=== PATIENT | male | born 1985 | race Caucasian/White ===

== ENCOUNTER → 2016-03-04 | Outpatient (REF) | payer OTHER ==
[~2016-03-04] MED LIST: ALPR2TAB3 PO; AMBI10TA PO; AMIT50TA PO; BACL10TA2 PO; CLAR10CA3 PO; CLOBETASOL TOP; COLA100C PO; CYCL10TA PO; DIAZ5TAB PO; DICY10SO PO; DULO30CA PO; FOLI1TAB2 PO; LISI-538 PO; LISI10TA4 PO; LYRI75CA PO; METH2.5TA PO; MINI1CAP PO; MORP15TA2 PO; OMEP40CA2 PO; OXYC15TA76 PO; OXYC1TAB23 PO; PAXI20TA3 PO; RANI150T PO; ROBA750T4 PO; SERO400T PO; SERO400T3 PO; SERO50TA PO; SOMA350T PO; TIZA4CAP3 PO; TOPA50TA7 PO; TRAZ100T4 PO; TRAZ150T14 PO; VALI2TAB PO; VALI5TAB PO; VARE1TA PO; VIST50CA PO; XANA0.5T PO
== END ==
LOC: M SFHCLERA 15:10
PROVIDERS: ATTEND Physician Assistant
DX: R41.840 Attention and concentration deficit (principal); Z53.9 Procedure and treatment not carried out, unspecified reason

== ENCOUNTER 2016-03-17 22:47 | Emergency (ER) | payer MEDICARE, MEDICAID ==
[2016-03-17] MEDS ORDERED: ALPRAZolam 0.25 MG TAB As Ordered ONE (23:28)
--- NOTE | 2016-03-18 00:11 | EDDOCDS ---
Physician Documentation [facility] Name: Jose Headley Age: 30 yrs Sex: Male : 1985 Arrival Date: 03/17/2016 Time: 22:47 Bed 30 Private MD: PIERCE MITCHELL R. Disposition: 03/17/16 23:57 Discharged to Home/Self Care. Impression: Anxiety disorder, unspecified. - Condition is Stable. - Discharge Instructions: Generalized Anxiety Disorder. - Medication Reconciliation, Local Pharmacy Hours form. - Follow up: PIERCE MITCHELL; When: 1 - 2 days; Reason: Recheck today's complaints. Follow up: [facility]; When: 4 - 5 days; Reason: Recheck today's complaints. - Problem is an ongoing problem. - Symptoms are unchanged. - Notes: You were seen in the ED for your anxiety. You were treated with anxiety medication and were seen by social work as well to make referrals for outpatient follow up. Please call [facility] and your primary doctor as well to arrange to be seen for ongoing care. Return to the ED for any worsening depression, thoughts of harming self or others or any other concerns. Historical: - Allergies: Ceftin (Rash, palpitation); - Home Meds: 1. lisinopril 20 mg Oral tab 1 tab once daily 2. loratadine 10 mg Oral tab 1 tab once daily 3. methocarbamol 750 mg Oral tab TID as needed 4. Minipress 1 mg Oral cap daily 5. omeprazole 40 mg Oral cpDR once daily 6. Seroquel 400 mg oral tab once daily 7. trazodone 100 mg Oral tab at HS for sleep 8. Xanax 0.5 mg Oral tab 1 tab 3 times per day - PMHx: Anxiety; Fibromyalgia; Hypertension; Panic Disorder; PTSD; soriatic arthritis; - PSHx: Colonoscopy; Endoscopy, Lower; - Social history: Smoking status: Patient uses tobacco products, heavy tobacco smoker. No barriers to communication noted, The patient speaks fluent German. - Family history: Not pertinent. - : The pt / caregiver states he / she is not on anticoagulants. Home medication list is obtained from the patient. - Exposure Risk Screening:: None identified. Vital Signs: 03/17 22:50 BP 121 / 87 RA Sitting (auto/lg); Pulse 88; Resp 18; Temp 97.7(O); Pulse Ox 100% on rs6 R/A; Weight 113.4 kg / 250 lbs (R); Height 5 ft. 9 in. (175.26 cm) (R); Pain 7/10; 03/18 00:09 BP 118 / 72; Pulse 78; Resp 18; Temp 98.0; Pulse Ox 99% ; Pain 0/10; tm5 03/17 22:50 Body Mass Index 36.92 (113.40 kg, 175.26 cm) rs6 MDM: 03/17 23:26 ALPRAZolam Tablet 1 mg PO once; prn anxiety ordered. br1 23:27 Consult PFS/PSA/Power Builder Developer: Resources/Social Work ordered. br1 23:49 Consult PFS/PSA/Power Builder Developer: Resources/Social Work complete. cl 23:52 Financial registration complete. [facility] Administered Medications: 23:32 Drug: ALPRAZolam 1 mg [alprazolam 0.25 mg tablet (4 tabs)] Route: PO; ld5 Signatures: Shelton Adkins, PSA PSA cl Alexey Gonzalez MD MD br1 Alecia Castillo RN RN rs3 Courtney White [facility] Sakshi Maldonado RN RN tm5 Jannie Carpio RN ld5 MTDD
--- NOTE | 2016-03-18 00:11 | EDDOCDS ---
Nurse's Notes [facility] Name: Jose Headley Age: 30 yrs Sex: Male : 1985 Arrival Date: 03/17/2016 Time: 22:47 Bed 30 Private MD: PIERCE MITCHELL R. Diagnosis: Anxiety disorder, unspecified Presentation: 03/17 22:52 Presenting complaint: Patient states: severe panic attack getting worse in the last few rs3 months. Saw primary care provider today. denies of suicidal/homicidal thoughts or plans. Mental Health Triage Level: Level 1- Pt displays no suicidal or homicidal ideations and does not appear to be a danger to self or others. Adult Sepsis Screening: The patient does not have new or worsening altered mentation. Patient's respiratory rate is less than 22. Systolic blood pressure is greater than 100. Patient has a qSOFA score of 0- Negative Sepsis Screen. Suicide/Homicide risk assessment- the patient denies having any suicidal and/or homicidal ideations and does not present with any other emotional, behavioral or mental health complaints. Status: Patient is not a food service or dependent. Transition of care: patient was not received from another setting of care. 22:52 Acuity: MICHAEL Level 4 rs3 22:52 Method Of Arrival: Walkin/Carried/Asstd rs3 Triage Assessment: 22:56 General: Appears in no apparent distress. Pain: Location: mouth. Pt Declines HIV rs3 testing. Historical: - Allergies: Ceftin (Rash, palpitation); - Home Meds: 1. lisinopril 20 mg Oral tab 1 tab once daily 2. loratadine 10 mg Oral tab 1 tab once daily 3. methocarbamol 750 mg Oral tab TID as needed 4. Minipress 1 mg Oral cap daily 5. omeprazole 40 mg Oral cpDR once daily 6. Seroquel 400 mg oral tab once daily 7. trazodone 100 mg Oral tab at HS for sleep 8. Xanax 0.5 mg Oral tab 1 tab 3 times per day - PMHx: Anxiety; Fibromyalgia; Hypertension; Panic Disorder; PTSD; soriatic arthritis; - PSHx: Colonoscopy; Endoscopy, Lower; - Social history: Smoking status: Patient uses tobacco products, heavy tobacco smoker. No barriers to communication noted, The patient speaks fluent Greek. - Family history: Not pertinent. - : The pt / caregiver states he / she is not on anticoagulants. Home medication list is obtained from the patient. - Exposure Risk Screening:: None identified. Screenin:17 Screening information is obtained from the patient. Fall risk: No risks identified. tm5 Assistance ADL's: requires no assistance with activities of daily living. Abuse/DV Screen: The patient / caregiver reports he/she is: not in a situation that causes fear, pain or injury. Nutritional screening: No deficits noted. Advance Directives: There is no active DNR order. home support is adequate. Assessment: 23:17 General: Appears in no apparent distress, Behavior is appropriate for age, cooperative. tm5 Pain: Denies pain. Neurological: Level of Consciousness is awake, alert, Oriented to person, place, time. Respiratory: Airway is patent Respiratory effort is even, unlabored, Respiratory pattern is regular, symmetrical. Derm: Skin is pink, warm & dry. normal. 23:32 General: Behavior is anxious, cooperative. General: Pt fidgeting in chair. Medicated ld5 per orders. Requesting to see provider. Pt would not be specific with this RN. Provider made aware. Will continue to monitor. Neurological: Level of Consciousness is awake, alert. Respiratory: Airway is patent Respiratory effort is even, unlabored. 03/18 00:09 Reassessment: Patient appears in no apparent distress at this time. Patient states tm5 feeling better. Patient states symptoms have improved. Social Work Consult: 00:04 Social Work Note: Pt has long hx of anxiety, presents to ED c/o worsening panic cl attacks/anxiety recently, denies SI/HI. Pt in no current outpt tx, had been going [facility] "until my insurance changed about a year ago", has been seeing his PCP for medications, takes Xanax for anxiety. Pt reports his PCP has referred hi to [facility] though pt realizes it may take some time to be seen, PSA offered additional referrals including [facility] walk-in tx, Dr. Gonzalez provided PRN Xanax as well. Pt denies any other needs/concerns, will f/u with his PCP in the morning, continues to deny any SI/HI and can CFS. Vital Signs: 03/17 22:50 BP 121 / 87 RA Sitting (auto/lg); Pulse 88; Resp 18; Temp 97.7(O); Pulse Ox 100% on rs6 R/A; Weight 113.4 kg (R); Height 5 ft. 9 in. (175.26 cm) (R); Pain 7/10; 03/18 00:09 BP 118 / 72; Pulse 78; Resp 18; Temp 98.0; Pulse Ox 99% ; Pain 0/10; tm5 03/17 22:50 Body Mass Index 36.92 (113.40 kg, 175.26 cm) rs6 Vitals: 03/17 22:50 Log In Time: March 17, 2016 at 22:45. RN notified that patient meets Red Flag rs6 criteria. ED Course: 22:49 Patient visited by Vanita Oneal PCA. rs6 22:49 PIERCE MITCHELL is Private Physician. rs6 22:49 Patient moved to Waiting rs6 22:54 Triage Initiated rs3 22:58 Patient moved to 30 rs3 23:06 Alexey Gonzalez MD is Attending Physician. br1 23:16 Patient visited by Sakshi Maldonado RN. tm5 23:16 ED physician to see patient. tm5 23:17 No IV's were initiated during this patient's visit. No procedures done that require tm5 assistance. 23:26 Patient visited by Alexey Gonzalez MD. br1 23:34 Patient visited by Jannie Carpio RN. ld5 23:42 Patient visited by Sakshi Maldonado RN. tm5 23:42 Psych services to see patient. tm5 23:43 Patient visited by Sakshi Maldonado RN. tm5 23:44 ED physician to see patient. tm5 23:56 PIERCE MITCHELL is Referral Physician. br1 23:56 [facility] is Referral Physician. br1 03/18 00:09 Patient visited by Sakshi Maldonado RN. tm5 00:09 The patient / caregiver is instructed regarding the plan of care and ED course. tm5 Administered Medications: 03/17 23:32 Drug: ALPRAZolam 1 mg [alprazolam 0.25 mg tablet (4 tabs)] Route: PO; ld5 Order Results: There are currently no results for this order. Outcome: 23:57 Discharge ordered by Provider. br1 03/18 00:09 Discharge Assessment: Patient awake, alert and oriented x 3. No cognitive and/or tm5 functional deficits noted. Patient verbalized understanding of disposition instructions. patient administered narcotics - no. The following High Risk Discharge criteria are identified: None. Discharged to home ambulatory. Condition: good Condition: stable Condition: improved. Discharge instructions given to patient, Instructed on discharge instructions, follow up and referral plans. Demonstrated understanding of instructions, Pt was receptive of discharge instructions/ teaching. No special radiology studies were completed. Property :Personal belongings accompany Pt. 00:10 Patient left the ED. tm5 Signatures: Shelton Adkins, PSA PSA cl Alexey Gonzalez MD MD br1 Alecia CastilloRN RN rs3 Jannie Carpio,RN RN ld5 Vanita Oneal PCA SLIDE DEVELOPER rs6 Sakshi Maldonado,RN RN tm5 MTDD
--- NOTE | 2016-03-20 01:11 | EDDOCDS ---
Physician Documentation [facility] Name: Jose Headley Age: 30 yrs Sex: Male : 1985 Arrival Date: 03/17/2016 Time: 22:47 Bed 30 Private MD: PIERCE MITCHELL R. Disposition: 03/17/16 23:57 Discharged to Home/Self Care. Impression: Anxiety disorder, unspecified. - Condition is Stable. - Discharge Instructions: Generalized Anxiety Disorder. - Medication Reconciliation, Local Pharmacy Hours form. - Follow up: PIERCE MITCHELL; When: 1 - 2 days; Reason: Recheck today's complaints. Follow up: [facility]; When: 4 - 5 days; Reason: Recheck today's complaints. - Problem is an ongoing problem. - Symptoms are unchanged. - Notes: You were seen in the ED for your anxiety. You were treated with anxiety medication and were seen by social work as well to make referrals for outpatient follow up. Please call [facility] and your primary doctor as well to arrange to be seen for ongoing care. Return to the ED for any worsening depression, thoughts of harming self or others or any other concerns. Historical: - Allergies: Ceftin (Rash, palpitation); - Home Meds: 1. lisinopril 20 mg Oral tab 1 tab once daily 2. loratadine 10 mg Oral tab 1 tab once daily 3. methocarbamol 750 mg Oral tab TID as needed 4. Minipress 1 mg Oral cap daily 5. omeprazole 40 mg Oral cpDR once daily 6. Seroquel 400 mg oral tab once daily 7. trazodone 100 mg Oral tab at HS for sleep 8. Xanax 0.5 mg Oral tab 1 tab 3 times per day - PMHx: Anxiety; Fibromyalgia; Hypertension; Panic Disorder; PTSD; soriatic arthritis; - PSHx: Colonoscopy; Endoscopy, Lower; - Social history: Smoking status: Patient uses tobacco products, heavy tobacco smoker. No barriers to communication noted, The patient speaks fluent Kazakh. - Family history: Not pertinent. - : The pt / caregiver states he / she is not on anticoagulants. Home medication list is obtained from the patient. - Exposure Risk Screening:: None identified. Vital Signs: 03/17 22:50 BP 121 / 87 RA Sitting (auto/lg); Pulse 88; Resp 18; Temp 97.7(O); Pulse Ox 100% on rs6 R/A; Weight 113.4 kg / 250 lbs (R); Height 5 ft. 9 in. (175.26 cm) (R); Pain 7/10; 03/18 00:09 BP 118 / 72; Pulse 78; Resp 18; Temp 98.0; Pulse Ox 99% ; Pain 0/10; tm5 03/17 22:50 Body Mass Index 36.92 (113.40 kg, 175.26 cm) rs6 MDM: 03/17 23:26 ALPRAZolam Tablet 1 mg PO once; prn anxiety ordered. br1 23:27 Consult PFS/PSA/Statistician Theoretical: Resources/Social Work ordered. br1 23:49 Consult PFS/PSA/Statistician Theoretical: Resources/Social Work complete. cl 23:52 Financial registration complete. [facility] 03/18 00:20 [facility] Payment Agreement was scanned into [employer] and attached to record. [facility] 12:23 T-Sheet-- Draft Copy was scanned into [employer] and attached to record. 12:23 Other: DRUG UTILIZATION REPORT was scanned into [employer] and attached to record. Administered Medications: 03/17 23:32 Drug: ALPRAZolam 1 mg [alprazolam 0.25 mg tablet (4 tabs)] Route: PO; ld5 Signatures: Shelton Adkins, PSA PSA cl Hilaria Vyas, Reg Reg gb Alexey Gonzalez MD MD br1 Alecia Castillo RN RN rs3 Courtney White [facility] Sakshi Maldonado RN RN tm5 Jannie Carpio RN ld5 The chart was reviewed and I authenticate all verbal orders and agree with the evaluation and treatment provided.Attachments: 03/18 00:20 [facility] Payment Agreement [facility] 12:23 T-Sheet-- Draft Copy Chart Complete MTDD
--- NOTE | 2016-03-20 01:11 | EDDOCDS ---
Nurse's Notes [facility] Name: Jose Headley Age: 30 yrs Sex: Male : 1985 Arrival Date: 03/17/2016 Time: 22:47 Bed 30 Private MD: PIERCE MITCHELL R. Diagnosis: Anxiety disorder, unspecified Presentation: 03/17 22:52 Presenting complaint: Patient states: severe panic attack getting worse in the last few rs3 months. Saw primary care provider today. denies of suicidal/homicidal thoughts or plans. Mental Health Triage Level: Level 1- Pt displays no suicidal or homicidal ideations and does not appear to be a danger to self or others. Adult Sepsis Screening: The patient does not have new or worsening altered mentation. Patient's respiratory rate is less than 22. Systolic blood pressure is greater than 100. Patient has a qSOFA score of 0- Negative Sepsis Screen. Suicide/Homicide risk assessment- the patient denies having any suicidal and/or homicidal ideations and does not present with any other emotional, behavioral or mental health complaints. Status: Patient is not a field services manager or dependent. Transition of care: patient was not received from another setting of care. 22:52 Acuity: MICHAEL Level 4 rs3 22:52 Method Of Arrival: Walkin/Carried/Asstd rs3 Triage Assessment: 22:56 General: Appears in no apparent distress. Pain: Location: mouth. Pt Declines HIV rs3 testing. Historical: - Allergies: Ceftin (Rash, palpitation); - Home Meds: 1. lisinopril 20 mg Oral tab 1 tab once daily 2. loratadine 10 mg Oral tab 1 tab once daily 3. methocarbamol 750 mg Oral tab TID as needed 4. Minipress 1 mg Oral cap daily 5. omeprazole 40 mg Oral cpDR once daily 6. Seroquel 400 mg oral tab once daily 7. trazodone 100 mg Oral tab at HS for sleep 8. Xanax 0.5 mg Oral tab 1 tab 3 times per day - PMHx: Anxiety; Fibromyalgia; Hypertension; Panic Disorder; PTSD; soriatic arthritis; - PSHx: Colonoscopy; Endoscopy, Lower; - Social history: Smoking status: Patient uses tobacco products, heavy tobacco smoker. No barriers to communication noted, The patient speaks fluent Korean. - Family history: Not pertinent. - : The pt / caregiver states he / she is not on anticoagulants. Home medication list is obtained from the patient. - Exposure Risk Screening:: None identified. Screenin:17 Screening information is obtained from the patient. Fall risk: No risks identified. tm5 Assistance ADL's: requires no assistance with activities of daily living. Abuse/DV Screen: The patient / caregiver reports he/she is: not in a situation that causes fear, pain or injury. Nutritional screening: No deficits noted. Advance Directives: There is no active DNR order. home support is adequate. Assessment: 23:17 General: Appears in no apparent distress, Behavior is appropriate for age, cooperative. tm5 Pain: Denies pain. Neurological: Level of Consciousness is awake, alert, Oriented to person, place, time. Respiratory: Airway is patent Respiratory effort is even, unlabored, Respiratory pattern is regular, symmetrical. Derm: Skin is pink, warm & dry. normal. 23:32 General: Behavior is anxious, cooperative. General: Pt fidgeting in chair. Medicated ld5 per orders. Requesting to see provider. Pt would not be specific with this RN. Provider made aware. Will continue to monitor. Neurological: Level of Consciousness is awake, alert. Respiratory: Airway is patent Respiratory effort is even, unlabored. 03/18 00:09 Reassessment: Patient appears in no apparent distress at this time. Patient states tm5 feeling better. Patient states symptoms have improved. Social Work Consult: 00:04 Social Work Note: Pt has long hx of anxiety, presents to ED c/o worsening panic cl attacks/anxiety recently, denies SI/HI. Pt in no current outpt tx, had been going to [facility] "until my insurance changed about a year ago", has been seeing his PCP for medications, takes Xanax for anxiety. Pt reports his PCP has referred hi to [facility] though pt realizes it may take some time to be seen, PSA offered additional referrals including [facility] walk-in tx, Dr. Gonzalez provided PRN Xanax as well. Pt denies any other needs/concerns, will f/u with his PCP in the morning, continues to deny any SI/HI and can CFS. Vital Signs: 03/17 22:50 BP 121 / 87 RA Sitting (auto/lg); Pulse 88; Resp 18; Temp 97.7(O); Pulse Ox 100% on rs6 R/A; Weight 113.4 kg (R); Height 5 ft. 9 in. (175.26 cm) (R); Pain 7/10; 03/18 00:09 BP 118 / 72; Pulse 78; Resp 18; Temp 98.0; Pulse Ox 99% ; Pain 0/10; tm5 03/17 22:50 Body Mass Index 36.92 (113.40 kg, 175.26 cm) rs6 Vitals: 03/17 22:50 Log In Time: March 17, 2016 at 22:45. RN notified that patient meets Red Flag rs6 criteria. ED Course: 22:49 Patient visited by Vanita Oneal PCA. rs6 22:49 PIERCE MITCHELL is Private Physician. rs6 22:49 Patient moved to Waiting rs6 22:54 Triage Initiated rs3 22:58 Patient moved to 30 rs3 23:06 Alexey Gonzalez MD is Attending Physician. br1 23:16 Patient visited by Sakshi Maldonado RN. tm5 23:16 ED physician to see patient. tm5 23:17 No IV's were initiated during this patient's visit. No procedures done that require tm5 assistance. 23:26 Patient visited by Alexey Gonzalez MD. br1 23:34 Patient visited by Jannie Carpio RN. ld5 23:42 Patient visited by Sakshi Maldonado RN. tm5 23:42 Psych services to see patient. tm5 23:43 Patient visited by Sakshi Maldonado RN. tm5 23:44 ED physician to see patient. tm5 23:56 PIERCE MITCHELL is Referral Physician. br1 23:56 [facility] is Referral Physician. br1 03/18 00:09 Patient visited by Sakshi Maldonado RN. tm5 00:09 The patient / caregiver is instructed regarding the plan of care and ED course. tm5 00:18 Patient name changed from Jose\\S\\Oscar\\S\\Kayode\\S\\ to Jose\\S\\J\\S\\Kayode. EDMS 00:20 [facility] Payment Agreement was scanned into [employer] and attached to record. [facility] 12:23 T-Sheet-- Draft Copy was scanned into [employer] and attached to record. gb 12:23 Other: DRUG UTILIZATION REPORT was scanned into [employer] and attached to record. gb Administered Medications: 03/17 23:32 Drug: ALPRAZolam 1 mg [alprazolam 0.25 mg tablet (4 tabs)] Route: PO; ld5 Order Results: There are currently no results for this order. Outcome: 23:57 Discharge ordered by Provider. br1 03/18 00:09 Discharge Assessment: Patient awake, alert and oriented x 3. No cognitive and/or tm5 functional deficits noted. Patient verbalized understanding of disposition instructions. patient administered narcotics - no. The following High Risk Discharge criteria are identified: None. Discharged to home ambulatory. Condition: good Condition: stable Condition: improved. Discharge instructions given to patient, Instructed on discharge instructions, follow up and referral plans. Demonstrated understanding of instructions, Pt was receptive of discharge instructions/ teaching. No special radiology studies were completed. Property :Personal belongings accompany Pt. 00:10 Patient left the ED. tm5 Signatures: Dispatcher [employer] EDMS Shelton Adkins, PSA PSA cl Hilaria Vyas, Reg Reg gb Alexey Gonzalez MD MD br1 Alecia Castillo,RN RN rs3 Jannie Carpio,RN RN ld5 Courtney White Rebecca, PCA PROFESSIONAL ADVISOR rs6 Sakshi Maldonado,RN RN tm5 Chart Complete MTDD
--- NOTE | 2016-03-20 01:11 | EDDOCDS ---
Physician Documentation [facility] Name: Jose Headley Age: 30 yrs Sex: Male : 1985 Arrival Date: 03/17/2016 Time: 22:47 Bed 30 Private MD: PIERCE IMTCHELL R. Disposition: 03/17/16 23:57 Discharged to Home/Self Care. Impression: Anxiety disorder, unspecified. - Condition is Stable. - Discharge Instructions: Generalized Anxiety Disorder. - Medication Reconciliation, Local Pharmacy Hours form. - Follow up: PIERCE MITCHELL; When: 1 - 2 days; Reason: Recheck today's complaints. Follow up: [facility]; When: 4 - 5 days; Reason: Recheck today's complaints. - Problem is an ongoing problem. - Symptoms are unchanged. - Notes: You were seen in the ED for your anxiety. You were treated with anxiety medication and were seen by social work as well to make referrals for outpatient follow up. Please call [facility] and your primary doctor as well to arrange to be seen for ongoing care. Return to the ED for any worsening depression, thoughts of harming self or others or any other concerns. Historical: - Allergies: Ceftin (Rash, palpitation); - Home Meds: 1. lisinopril 20 mg Oral tab 1 tab once daily 2. loratadine 10 mg Oral tab 1 tab once daily 3. methocarbamol 750 mg Oral tab TID as needed 4. Minipress 1 mg Oral cap daily 5. omeprazole 40 mg Oral cpDR once daily 6. Seroquel 400 mg oral tab once daily 7. trazodone 100 mg Oral tab at HS for sleep 8. Xanax 0.5 mg Oral tab 1 tab 3 times per day - PMHx: Anxiety; Fibromyalgia; Hypertension; Panic Disorder; PTSD; soriatic arthritis; - PSHx: Colonoscopy; Endoscopy, Lower; - Social history: Smoking status: Patient uses tobacco products, heavy tobacco smoker. No barriers to communication noted, The patient speaks fluent Frisian. - Family history: Not pertinent. - : The pt / caregiver states he / she is not on anticoagulants. Home medication list is obtained from the patient. - Exposure Risk Screening:: None identified. Vital Signs: 03/17 22:50 BP 121 / 87 RA Sitting (auto/lg); Pulse 88; Resp 18; Temp 97.7(O); Pulse Ox 100% on rs6 R/A; Weight 113.4 kg / 250 lbs (R); Height 5 ft. 9 in. (175.26 cm) (R); Pain 7/10; 03/18 00:09 BP 118 / 72; Pulse 78; Resp 18; Temp 98.0; Pulse Ox 99% ; Pain 0/10; tm5 03/17 22:50 Body Mass Index 36.92 (113.40 kg, 175.26 cm) rs6 MDM: 03/17 23:26 ALPRAZolam Tablet 1 mg PO once; prn anxiety ordered. br1 23:27 Consult PFS/PSA/Locker Room Clerk: Resources/Social Work ordered. br1 23:49 Consult PFS/PSA/Locker Room Clerk: Resources/Social Work complete. cl 23:52 Financial registration complete. [facility] 03/18 00:20 [facility] Payment Agreement was scanned into [employer] and attached to record. [facility] 12:23 T-Sheet-- Draft Copy was scanned into [employer] and attached to record. 12:23 Other: DRUG UTILIZATION REPORT was scanned into [employer] and attached to record. Administered Medications: 03/17 23:32 Drug: ALPRAZolam 1 mg [alprazolam 0.25 mg tablet (4 tabs)] Route: PO; ld5 Signatures: Shelton Adkins, PSA PSA cl Hilaria Vyas, Reg Reg gb Alexey Gonzalez MD MD br1 Alecia Castillo RN RN rs3 Courtney White [facility] Sakshi Maldonado RN RN tm5 Jannie Carpio RN ld5 The chart was reviewed and I authenticate all verbal orders and agree with the evaluation and treatment provided.Attachments: 03/18 00:20 [facility] Payment Agreement [facility] 12:23 T-Sheet-- Draft Copy Chart Complete MTDD
== END 2016-03-18 00:10 | disposition home or self-care (01) ==
LOC: M ED 22:47
DX: F41.9 Anxiety disorder, unspecified (principal); I10 Essential (primary) hypertension; F43.10 Post-traumatic stress disorder, unspecified; L40.50 Arthropathic psoriasis, unspecified; Z79.899 Other long term (current) drug therapy; Z88.1 Allergy status to other antibiotic agents; F17.210 Nicotine dependence, cigarettes, uncomplicated

== ENCOUNTER 2016-04-23 22:03 | Emergency (ER) | payer MEDICARE, MEDICAID ==
[~2016-04-23] VITALS: Ht 175.3 cm; Wt 111.1 kg
[2016-04-23] MEDS ORDERED: BUSP1TAB PO (22:20)
[2016-04-23] MEDS ORDERED: NORCO 5/325MG TABLET (BULK) PO ONE (23:45)
[2016-04-23] MEDS ORDERED: CLEO300C2 PO (23:45)
[2016-04-23] MEDS ORDERED: CLINDAMYCIN 150 MG CAP PO ONE (23:45)
[2016-04-23] MEDS ORDERED: NORC5TAB PO (23:45)
[2016-04-23 23:59] VITALS: BP 166/100
== END 2016-04-24 | disposition home or self-care (01) ==
LOC: M ED 23:42
DX: K02.9 Dental caries, unspecified (principal); K05.00 Acute gingivitis, plaque induced; K21.9 Gastro-esophageal reflux disease without esophagitis; F41.9 Anxiety disorder, unspecified; Z79.899 Other long term (current) drug therapy; Z88.1 Allergy status to other antibiotic agents; Z88.8 Allergy status to other drugs, medicaments and biological substances; F17.210 Nicotine dependence, cigarettes, uncomplicated

== ENCOUNTER 2016-04-25 14:03 | Emergency (ER) | payer MEDICARE, MEDICAID ==
[~2016-04-25] VITALS: Ht 175.3 cm; Wt 111.1 kg
[~2016-04-25 14:03] MED LIST changes: +BUSP1TAB PO; +CLEO300C2 PO; +NORC5TAB PO
[2016-04-25 14:10] VITALS: BP 152/93
--- NOTE | 2016-04-25 18:22 | ECGEPIP ---
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 HEART RATE IS NOW SLOWER OTHERWISE NO SIGNIFICANT CHANGES Electronically Signed On 04-25-2016 18:22:40 EDT by Raudel Hernandez
[2016-04-26] MEDS ORDERED: TYLE500T78 PO (22:09)
[2016-04-26] MEDS ORDERED: IBUP600T26 PO (22:09)
== END 2016-04-25 16:49 | disposition left against medical advice (07) ==
LOC: M ED 16:39
DX: R07.9 Chest pain, unspecified (principal); Z53.20 Procedure and treatment not carried out because of patient's decision for unspecified reasons

== ENCOUNTER 2016-04-26 21:40 | Emergency (ER) | payer MEDICARE, MEDICAID ==
[~2016-04-26] VITALS: Ht 175.3 cm; Wt 108.9 kg
[2016-04-26] MEDS ORDERED: TYLE500T78 PO (22:09)
[2016-04-26] MEDS ORDERED: IBUP600T26 PO (22:09)
[2016-04-26] MEDS ORDERED: MORPHINE 4 MG/ML 1ML SYRINGE IV ONE (22:45)
[2016-04-26] MEDS ORDERED: ONDANSETRON 4MG/2ML VIAL (J2405) IV ONE (22:45)
[2016-04-26 23:03] LABS: BASO % 0.2 % (0.0-1.0); EOS # 0.2 K/mm3 (0.0-0.50); EOS % 2.7 % (0.0-3.0); LARGE UNSTAINED CELL # 0.1 K/mm3 (0.0-0.4); LARGE UNSTAINED CELL % 1.4 % (0.0-4.0); LYMPH # 2.2 K/mm3 (1.5-4.5); LYMPH % 27.7 % (24.0-44.0); MEAN CORPUSCULAR HEMOGLOBIN 28.7 pg (27.0-33.0); MEAN CORPUSCULAR HGB CONC 33.1 g/dl (32.0-36.5); MEAN CORPUSCULAR VOLUME 86.8 fl (80.0-96.0); MONO # 0.4 K/mm3 (0.0-0.8); MONO % 5.7 % (0.0-5.0); NEUTROPHILS # 4.7 K/mm3 (1.8-7.7); NEUTROPHILS % 62.2 % (36.0-66.0); PLATELET COUNT, AUTOMATED 241 k/mm3 (150-450); RED CELL DISTRIBUTION WIDTH 12.9 % (11.5-14.5); WHITE BLOOD COUNT 7.6 K/mm3 (4.0-10.0)
[2016-04-26 23:27] LABS: ANION GAP 8 MEQ/L (8-16); BLOOD UREA NITROGEN 8 MG/DL (7-18); CALCIUM LEVEL 8.6 MG/DL (8.5-10.1); CARBON DIOXIDE LEVEL 27 MEQ/L (21-32); CHLORIDE LEVEL 110 MEQ/L (98-107); CREATININE FOR GFR 0.88 MG/DL (0.70-1.30); GLOMERULAR FILTRATION RATE > 60.0 (>60); GLUCOSE, FASTING 83 MG/DL (70-105); POTASSIUM SERUM 3.7 MEQ/L (3.5-5.1); SODIUM LEVEL 145 MEQ/L (136-145)
[2016-04-26] MEDS ORDERED: ISOVUE-370 76% 100ML VIAL (Q9967) As Ordered ONE (23:30)
--- NOTE | 2016-04-27 00:30 | REPUSA ---
CLINICAL HISTORY: Rob angina. TECHNIQUE: Multiple axial CT images were obtained through the neck with IV contrast material. MPR cor onal and sagittal sequences were obtained. COMMENTS: Diffuse edema and swelling of the oropharyngeal soft tissues. No critical airway narrowing. No drainable fluid collection. The piriform sinuses are normal. There is no supra or infraglottic laryngeal mass. The proximal trach ea is normal. There is no paravertebral soft tissue mass. The salivary glands are normal. There is no deep cervical or jugular lymphadenopathy. The paravertebral soft tissue space is normal. Limited images through the posterior fossa demonstrate no evidence for tonsilar herniation. Evaluation of the visualized lung apices reveals no evidence for abnormality. IMPRESSION: Diffuse edema and swelling of the oropharyngeal soft tissues. Probably infectious/inflammatory pathol ogy. Mildly enlarged palatine tonsils. No critical airway narrowing. No drainable abscess formation. Thank you for your kind referral of this patient.
[2016-04-27 00:34] VITALS: BP 135/71
[2016-04-27] MEDS ORDERED: NORCO 5/325MG TABLET (BULK) PO ONE (00:45)
--- NOTE | 2016-04-27 08:26 | ECGEPIP ---
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
== END 2016-04-27 00:54 | disposition home or self-care (01) ==
LOC: M ED 22:48
DX: K02.9 Dental caries, unspecified (principal); K13.79 Other lesions of oral mucosa; I10 Essential (primary) hypertension; F31.9 Bipolar disorder, unspecified; M51.9 Unspecified thoracic, thoracolumbar and lumbosacral intervertebral disc disorder; L40.9 Psoriasis, unspecified; F17.200 Nicotine dependence, unspecified, uncomplicated; Z79.899 Other long term (current) drug therapy; Z88.1 Allergy status to other antibiotic agents; Z88.8 Allergy status to other drugs, medicaments and biological substances
CPT/HCPCS: 70491; 80048; 85025; 86140; 93005; 96374; 96375; 99283; J2405; Q9967

== ENCOUNTER → 2016-09-01 | Outpatient (REF) | payer MEDICARE, MEDICAID ==
[~2016-09-01] MED LIST changes: -COLA100C PO; +COLA100C5 PO; -FOLI1TAB2 PO; +FOLI1TAB4 PO; +IBUP-1022 PO; +NORC1TAB4 PO; -NORC5TAB PO; +PAXI20TA29 PO; -PAXI20TA3 PO; -TOPA50TA7 PO; +TOPA50TA8 PO; +TRAZ-136 PO; -TRAZ100T4 PO; -TRAZ150T14 PO; +TRAZ1TAB14 PO; +TYLE500T78 PO
[2016-09-01 11:35] LABS: MEAN CORPUSCULAR HGB CONC 34.6 g/dl (32.0-36.5); MEAN CORPUSCULAR VOLUME 86.8 fl (80.0-96.0); RED CELL DISTRIBUTION WIDTH 12.8 % (11.5-14.5); WHITE BLOOD COUNT 8.3 K/mm3 (4.0-10.0)
[2016-09-01 14:56] LABS: ALBUMIN 3.8 GM/DL (3.2-5.2); ALBUMIN/GLOBULIN RATIO 1.06 (1.00-1.93); ALKALINE PHOSPHATASE 108 U/L (45-117); ALT/SGPT 39 U/L (12-78); ANION GAP 6 MEQ/L (8-16); AST/SGOT 21 U/L (15-37); BILIRUBIN,TOTAL 0.2 MG/DL (0.2-1.0); BLOOD UREA NITROGEN 11 MG/DL (7-18); CALCIUM LEVEL 8.9 MG/DL (8.5-10.1); CARBON DIOXIDE LEVEL 26 MEQ/L (21-32); CHLORIDE LEVEL 111 MEQ/L (98-107); CHOLESTEROL LEVEL 161 MG/DL (<200); CREATININE FOR GFR 0.82 MG/DL (0.70-1.30); GLOMERULAR FILTRATION RATE > 60.0 (>60); GLUCOSE, FASTING 105 MG/DL (70-105); POTASSIUM SERUM 4.1 MEQ/L (3.5-5.1); SODIUM LEVEL 143 MEQ/L (136-145); TOTAL PROTEIN 7.4 GM/DL (6.4-8.2); TRIGLYCERIDES LEVEL 355 MG/DL (<150)
== END ==
LOC: M SFHCLERA 08:23
PROVIDERS: ATTEND Physician Assistant
DX: I10 Essential (primary) hypertension (principal); E78.2 Mixed hyperlipidemia; N40.1 Benign prostatic hyperplasia with lower urinary tract symptoms; E03.9 Hypothyroidism, unspecified; F17.200 Nicotine dependence, unspecified, uncomplicated; M51.26 Other intervertebral disc displacement, lumbar region; F31.32 Bipolar disorder, current episode depressed, moderate
CPT/HCPCS: 80053; 80061; 84443; 85027; G0103; G0463

== ENCOUNTER → 2017-03-21 | Outpatient (REF) | payer MEDICARE, MEDICAID ==
[2017-03-21 13:22] LABS: ALBUMIN 4.2 GM/DL (3.2-5.2); ALBUMIN/GLOBULIN RATIO 1.24 (1.00-1.93); ALKALINE PHOSPHATASE 81 U/L (45-117); ALT/SGPT 37 U/L (12-78); ANION GAP 4 MEQ/L (8-16); AST/SGOT 21 U/L (7-37); BILIRUBIN,TOTAL 0.3 MG/DL (0.2-1.0); BLOOD UREA NITROGEN 13 MG/DL (7-18); CALCIUM LEVEL 9.1 MG/DL (8.5-10.1); CARBON DIOXIDE LEVEL 29 MEQ/L (21-32); CHLORIDE LEVEL 108 MEQ/L (98-107); CHOLESTEROL LEVEL 146 MG/DL (<200); CHOLESTEROL RISK RATIO 4.709 (<5); CREATININE FOR GFR 0.77 MG/DL (0.70-1.30); GLOMERULAR FILTRATION RATE > 60.0 (>60); GLUCOSE, FASTING 96 MG/DL (70-100); HDL CHOLESTEROL 31 MG/DL (>40); NON-HDL-C 115 MG/DL; POTASSIUM SERUM 4.7 MEQ/L (3.5-5.1); SODIUM LEVEL 141 MEQ/L (136-145); TOTAL PROTEIN 7.6 GM/DL (6.4-8.2); TRIGLYCERIDES LEVEL 90 MG/DL (<150)
[2017-03-28 08:24] LABS: SUMMARY SEE SEPARATE REPORT
== END ==
LOC: M SFHCLERA 08:55
DX: E78.2 Mixed hyperlipidemia (principal); E03.9 Hypothyroidism, unspecified; F13.21 Sedative, hypnotic or anxiolytic dependence, in remission; Z79.899 Other long term (current) drug therapy
CPT/HCPCS: 84443

== ENCOUNTER → 2017-03-27 | Outpatient (REF) | payer MEDICARE, MEDICAID ==
[2017-03-27 20:50] LABS: BASO % 0.4 % (0.0-1.0); EOS # 0.3 10^3/uL (0.0-0.50); EOS % 3.7 % (0.0-3.0); HEMATOCRIT 44.7 % (42.0-52.0); IMMATURE GRANULOCYTE % 0.5 % (0-3.0); LYMPH # 2.6 10^3/uL (1.5-4.5); LYMPH % 32.9 % (24.0-44.0); MEAN CORPUSCULAR HEMOGLOBIN 29.2 pg (27.0-33.0); MEAN CORPUSCULAR HGB CONC 33.6 g/dl (32.0-36.5); MONO # 0.6 10^3/uL (0.0-0.8); MONO % 7.6 % (0.0-5.0); NEUTROPHILS # 4.4 10^3/uL (1.8-7.7); NEUTROPHILS % 54.9 % (36.0-66.0); PLATELET COUNT, AUTOMATED 311 10^3/uL (150-450); RED BLOOD COUNT 5.14 10^6/uL (4.30-6.10); RED CELL DISTRIBUTION WIDTH 13.6 % (11.5-14.5)
[2017-03-27 21:09] LABS: ALBUMIN 4.4 GM/DL (3.2-5.2); ALBUMIN/GLOBULIN RATIO 1.19 (1.00-1.93); ALKALINE PHOSPHATASE 87 U/L (45-117); ALT/SGPT 38 U/L (12-78); ANION GAP 7 MEQ/L (8-16); AST/SGOT 22 U/L (7-37); BILIRUBIN,TOTAL 0.3 MG/DL (0.2-1.0); BLOOD UREA NITROGEN 13 MG/DL (7-18); CALCIUM LEVEL 9.3 MG/DL (8.5-10.1); CARBON DIOXIDE LEVEL 28 MEQ/L (21-32); CHLORIDE LEVEL 107 MEQ/L (98-107); CREATININE FOR GFR 0.79 MG/DL (0.70-1.30); GLOMERULAR FILTRATION RATE > 60.0 (>60); GLUCOSE, FASTING 83 MG/DL (70-100); POTASSIUM SERUM 4.3 MEQ/L (3.5-5.1); SODIUM LEVEL 142 MEQ/L (136-145); TOTAL PROTEIN 8.1 GM/DL (6.4-8.2)
[2017-03-29 10:55] LABS: HEPATITIS B SURFACE ANTIGEN NEGATIVE (NEGATIVE)
[2017-03-29 11:00] LABS: HEPATITIS B CORE ANTIBODY IGM NEGATIVE (NEGATIVE)
[2017-03-29 11:01] LABS: HIV 1&2 SCREEN CENTAUR NEGATIVE (NEGATIVE)
[2017-03-29 11:02] LABS: HEPATITIS A ANTIBODY IGM NEGATIVE (NEGATIVE)
[2017-03-30 00:07] LABS: QUANTIFERON GOLD TB Negative (Negative); TB Test (QFT) Antigen 0.01 IU/mL (.); TB Test (QFT) Mitogen 8.65 IU/mL (.); TB Test (QFT) Nil 0.01 IU/mL (.)
== END ==
LOC: M SFHCLERA 17:53
DX: L40.0 Psoriasis vulgaris (principal); L40.50 Arthropathic psoriasis, unspecified
CPT/HCPCS: 80053

== ENCOUNTER → 2018-03-02 | Outpatient (REF) | payer MEDICARE, MEDICAID ==
[~2018-03-02] MED LIST changes: +FOLI1TAB11 PO; -FOLI1TAB4 PO; +METH2.5T48 PO; -METH2.5TA PO; +TIZA4CAP PO; -TIZA4CAP3 PO; -TRAZ-136 PO; +TRAZ-163 PO
[2018-03-02 17:05] LABS: HEMATOCRIT 46.4 % (42.0-52.0); HEMOGLOBIN 15.5 g/dl (13.5-17.5); MEAN CORPUSCULAR HEMOGLOBIN 29.9 pg (27.0-33.0); MEAN CORPUSCULAR HGB CONC 33.4 g/dl (32.0-36.5); MEAN CORPUSCULAR VOLUME 89.4 fl (80.0-96.0); PLATELET COUNT, AUTOMATED 288 10^3/uL (150-450); RED BLOOD COUNT 5.19 10^6/uL (4.30-6.10); WHITE BLOOD COUNT 8.1 10^3/uL (4.0-10.0)
[2018-03-02 17:11] LABS: ALBUMIN 3.9 GM/DL (3.2-5.2); ALT/SGPT 36 U/L (12-78); BILIRUBIN,TOTAL 0.3 MG/DL (0.2-1.0); BLOOD UREA NITROGEN 18 MG/DL (7-18); CALCIUM LEVEL 8.9 MG/DL (8.5-10.1); CARBON DIOXIDE LEVEL 25 MEQ/L (21-32); CHLORIDE LEVEL 103 MEQ/L (98-107); CHOLESTEROL LEVEL 211 MG/DL (<200); CHOLESTEROL RISK RATIO 5.552 (<5); CREATININE FOR GFR 0.78 MG/DL (0.70-1.30); FREE T4 0.97 NG/DL (0.76-1.46); GLOMERULAR FILTRATION RATE > 60.0 (>60); GLUCOSE, FASTING 97 MG/DL (70-100); HDL CHOLESTEROL 38 MG/DL (>40); LDL CHOLESTEROL 132 MG/DL (<100); NON-HDL-C 173 MG/DL; POTASSIUM SERUM 3.8 MEQ/L (3.5-5.1); SODIUM LEVEL 139 MEQ/L (136-145); TOTAL PROTEIN 7.7 GM/DL (6.4-8.2); TRIGLYCERIDES LEVEL 206 MG/DL (<150)
== END ==
LOC: M SFHCLERA 13:43
PROVIDERS: ATTEND Nurse Practitioner Family
DX: I10 Essential (primary) hypertension (principal); E78.2 Mixed hyperlipidemia; E03.9 Hypothyroidism, unspecified; F13.21 Sedative, hypnotic or anxiolytic dependence, in remission

== ENCOUNTER → 2018-03-17 | Outpatient (REF) | payer MEDICARE, MEDICAID | LOC: M LAB REF 12:21 | PROVIDERS: ATTEND Physician Assistant | DX: J02.9 Acute pharyngitis, unspecified (principal) ==

== ENCOUNTER → 2018-05-24 | Outpatient (REF) | payer MEDICARE, MEDICAID ==
[~2018-05-24] MED LIST changes: -DULO30CA PO; +DULO30CA9 PO; -NORC1TAB4 PO; +NORC1TAB7 PO; -SERO400T3 PO; +SERO400T4 PO
[2018-05-24 16:41] LABS: BASO # 0.1 10^3/uL (0.0-0.2); BASO % 0.7 % (0.0-1.0); EOS # 0.2 10^3/uL (0.0-0.50); EOS % 2.3 % (0.0-3.0); HEMATOCRIT 47.8 % (42.0-52.0); HEMOGLOBIN 15.3 g/dl (13.5-17.5); LYMPH # 2.1 10^3/uL (1.5-4.5); LYMPH % 29.2 % (24.0-44.0); MEAN CORPUSCULAR HEMOGLOBIN 29.4 pg (27.0-33.0); MEAN CORPUSCULAR VOLUME 91.7 fl (80.0-96.0); MONO # 0.6 10^3/uL (0.0-0.8); MONO % 7.9 % (0.0-5.0); NEUTROPHILS # 4.3 10^3/uL (1.8-7.7); NEUTROPHILS % 59.1 % (36.0-66.0); PLATELET COUNT, AUTOMATED 254 10^3/uL (150-450); RED BLOOD COUNT 5.21 10^6/uL (4.30-6.10); WHITE BLOOD COUNT 7.3 10^3/uL (4.0-10.0)
[2018-05-24 16:47] LABS: ALBUMIN 4.1 GM/DL (3.2-5.2); ALT/SGPT 32 U/L (12-78); BILIRUBIN,TOTAL 0.4 MG/DL (0.2-1.0); BLOOD UREA NITROGEN 14 MG/DL (7-18); CARBON DIOXIDE LEVEL 29 MEQ/L (21-32); CHLORIDE LEVEL 107 MEQ/L (98-107); CREATININE FOR GFR 0.86 MG/DL (0.70-1.30); GLOMERULAR FILTRATION RATE > 60.0 (>60); GLUCOSE, FASTING 85 MG/DL (70-100); POTASSIUM SERUM 4.1 MEQ/L (3.5-5.1); SODIUM LEVEL 141 MEQ/L (136-145); TOTAL PROTEIN 7.6 GM/DL (6.4-8.2)
[2018-05-25 06:04] LABS: HEPATITIS B SURFACE ANTIGEN NEGATIVE (NEGATIVE)
[2018-05-25 06:30] LABS: HEPATITIS C VIRUS ABY INDEX 0.1 INDEX (<0.8)
[2018-05-25 06:31] LABS: HEPATITIS B CORE ANTIBODY IGM NEGATIVE (NEGATIVE)
[2018-05-25 06:33] LABS: HEPATITIS A ANTIBODY IGM NEGATIVE (NEGATIVE)
== END ==
LOC: M SFHCLERA 13:57
PROVIDERS: ATTEND Dermatology
DX: Z51.81 Encounter for therapeutic drug level monitoring (principal)

== ENCOUNTER → 2018-11-06 | Outpatient (REF) | payer MEDICARE, MEDICAID ==
[~2018-11-06] MED LIST changes: -OMEP40CA2 PO; +OMEP40CA97 PO; -TRAZ-163 PO; +TRAZ-257 PO
== END ==
LOC: M SFHCLERA 15:27
PROVIDERS: ATTEND Nurse Practitioner Family
DX: J02.9 Acute pharyngitis, unspecified (principal)

== ENCOUNTER → 2019-04-18 | Outpatient (CLI) | payer MEDICAID, MEDICARE | LOC: M LAB 15:49 | PROVIDERS: ATTEND Dermatology | DX: Z79.899 Other long term (current) drug therapy (principal) ==

== ENCOUNTER → 2019-11-22 | Outpatient (CLI) | payer SELFPAY ==
[~2019-11-22] MED LIST changes: +CYCL-707 PO; -CYCL10TA PO; +OXYC-1 PO; -OXYC15TA76 PO
== END ==
LOC: M LABSMTC 11:18
PROVIDERS: ATTEND Pediatrics
DX: Z20.828 Contact with and (suspected) exposure to other viral communicable diseases (principal)

== ENCOUNTER → 2020-02-24 | Outpatient (CLI) | payer MEDICARE ==
[2020-02-24 19:00] LABS: FREE T4 0.86 NG/DL (0.76-1.46); THYROID STIMULATING HORMONE 1.51 uIU/ML (0.358-3.740)
== END ==
LOC: M LAB 18:00
PROVIDERS: ATTEND Nurse Practitioner Family
DX: E03.9 Hypothyroidism, unspecified (principal); R39.11 Hesitancy of micturition
CPT/HCPCS: 36415; 84439; 84443; G0103

== ENCOUNTER → 2020-04-01 | Outpatient (CLI) | payer MEDICARE ==
[~2020-04-01] MED LIST changes: -LISI-538 PO; +LISI10TA22 PO; -LISI10TA4 PO; +LISI20TA33 PO
== END ==
LOC: M OUTALCOH 08:28
PROVIDERS: ATTEND Psychiatry & Neurology Psychiatry
DX: Z02.89 Encounter for other administrative examinations (principal)

== ENCOUNTER → 2020-04-06 | Outpatient (CLI) | payer MEDICARE | LOC: M OUTALCOH 08:32 | PROVIDERS: ATTEND Psychiatry & Neurology Psychiatry | DX: F10.10 Alcohol abuse, uncomplicated (principal) ==

== ENCOUNTER → 2020-05-03 | Outpatient (CLI) | payer SELFPAY | LOC: M LABSMTC 10:44 | PROVIDERS: ATTEND Pediatrics | DX: Z20.822 Contact with and (suspected) exposure to COVID-19 (principal) ==

== ENCOUNTER → 2020-05-13 | Outpatient (RCR) | payer MEDICARE | LOC: M OUTALCOH 04-15 14:00 | PROVIDERS: ATTEND Psychiatry & Neurology Psychiatry | DX: F10.20 Alcohol dependence, uncomplicated (principal); F17.200 Nicotine dependence, unspecified, uncomplicated ==

== ENCOUNTER → 2020-06-12 | Outpatient (RCR) | payer MEDICARE | LOC: M OUTALCOH 05-20 16:00 | PROVIDERS: ATTEND Psychiatry & Neurology Psychiatry | DX: F10.20 Alcohol dependence, uncomplicated (principal); F17.200 Nicotine dependence, unspecified, uncomplicated ==

== ENCOUNTER 2020-06-30 09:56 | Inpatient (IN) | payer MEDICARE ==
[~2020-06-30] VITALS: Ht 175.3 cm; Wt 113.5 kg
[2020-06-30] MEDS: FEXOFENADINE 60 MG TAB PO SCH (09:00)
[2020-06-30] MEDS ORDERED: PREG100C PO (10:12)
[2020-06-30] MEDS ORDERED: LEVO50TA5 PO (10:12)
[2020-06-30] MEDS ORDERED: HYDR-3363 PO (10:12)
[2020-06-30] MEDS ORDERED: LISI40TA4 PO (10:12)
[2020-06-30] MEDS ORDERED: LUNE2TAB23 PO (10:12)
[2020-06-30] MEDS ORDERED: COSE1INJ SC (10:12)
[2020-06-30] MEDS ORDERED: TIZA4TAB4 PO (10:12)
[2020-06-30] MEDS ORDERED: PRAV20TA2 PO (10:12)
[2020-06-30 11:02] LABS: MEAN CORPUSCULAR HEMOGLOBIN 29.3 pg (27.0-33.0); MEAN CORPUSCULAR HGB CONC 32.6 g/dl (32.0-36.5); MEAN CORPUSCULAR VOLUME 89.8 fl (80.0-96.0); PLATELET COUNT, AUTOMATED 286 10^3/uL (150-450); RED BLOOD COUNT 5.12 10^6/uL (4.30-6.10)
[2020-06-30 11:24] LABS: AMPHETAMINES LEVEL URINE NEGATIVE (NEGATIVE); BARBITURATES URINE NEGATIVE (NEGATIVE); BENZODIAZEPINES URINE NEGATIVE (NEGATIVE); CANNABINOIDS URINE NEGATIVE (NEGATIVE); COCAINE METABOLITE URINE NEGATIVE (NEGATIVE); METHADONE URINE NEGATIVE (NEGATIVE); OPIATES URINE NEGATIVE (NEGATIVE); PHENCYCLIDINE URINE NEGATIVE (NEGATIVE)
[2020-06-30] MEDS ORDERED: ALPRAZolam 0.25 MG TAB PO ONE (11:25)
[2020-06-30 11:40] LABS: ACETAMINOPHEN LEVEL < 2.0 UG/ML (10.0-30.0); ALBUMIN 4.2 GM/DL (3.2-5.2); ALT/SGPT 36 U/L (12-78); BILIRUBIN,DIRECT 0.2 MG/DL (0.0-0.2); BILIRUBIN,TOTAL 0.6 MG/DL (0.2-1.0); BLOOD UREA NITROGEN 7 MG/DL (7-18); CALCIUM LEVEL 9.1 MG/DL (8.5-10.1); CARBON DIOXIDE LEVEL 23 MEQ/L (21-32); CHLORIDE LEVEL 111 MEQ/L (98-107); CREATININE FOR GFR 0.63 MG/DL (0.70-1.30); ETHYL ALCOHOL (ETHANOL) < 0.003 % (0.000-0.010); GLOMERULAR FILTRATION RATE > 60.0 (>60); GLUCOSE, FASTING 92 MG/DL (70-100); POTASSIUM SERUM 4.1 MEQ/L (3.5-5.1); SALICYLATE LEVEL 4.2 MG/DL (5.0-30.0); SODIUM LEVEL 142 MEQ/L (136-145); TOTAL PROTEIN 7.9 GM/DL (6.4-8.2)
[2020-06-30] MEDS ORDERED: ALLE180T33 PO (13:19)
[2020-06-30] MEDS ORDERED: ESZO1TAB6 PO (13:19)
[2020-06-30] MEDS ORDERED: MAALOX 30 ML SUSP *UDC PO PRN (14:30)
[2020-06-30] MEDS: PREGABALIN 100 MG CAP (LYRICA) PO SCH ×2 (16:00→20:39)
[2020-06-30] MEDS: hydrOXYzine 25 MG TAB PO SCH ×2 (16:00→20:39)
[2020-06-30] MEDS: tiZANidine 4 MG TAB PO SCH ×2 (16:00→20:39)
[2020-06-30] MEDS: LEVOTHYROXINE 50MCG TABLET (0.05MG) PO SCH (17:07)
[2020-06-30] MEDS: NICOTINE 21MG/24HR 1 EA TRANSDERMAL TD SCH (17:08)
[2020-06-30 18:05] VITALS: BP 153/92
[2020-06-30] MEDS: LORazepam 1 MG TAB PO PRN (18:54)
[2020-06-30] MEDS ORDERED: traZODone 50 MG TAB PO PRN (21:00)
[2020-06-30] MEDS: PRAVASTATIN 20 MG TAB PO SCH (21:27)
[2020-06-30] MEDS: diphenhydrAMINE 50MG CAP PO SCH (22:03)
[2020-07-01] MEDS: LEVOTHYROXINE 50MCG TABLET (0.05MG) PO SCH (06:07)
[2020-07-01 06:31] VITALS: BP 123/80
[2020-07-01] MEDS: LORazepam 1 MG TAB PO PRN ×3 (08:31→21:07)
[2020-07-01] MEDS: hydrOXYzine 25 MG TAB PO SCH ×3 (08:31→21:07)
[2020-07-01] MEDS: tiZANidine 4 MG TAB PO SCH ×3 (08:31→21:07)
[2020-07-01] MEDS: PREGABALIN 100 MG CAP (LYRICA) PO SCH ×2 (08:31→15:46)
[2020-07-01] MEDS: NICOTINE 21MG/24HR 1 EA TRANSDERMAL TD SCH (08:56)
[2020-07-01] MEDS ORDERED: lisinopriL 40 MG TAB PO SCH (09:00)
[2020-07-01] MEDS: lisinopriL 40 MG TAB PO SCH (09:00)
[2020-07-01] MEDS: FEXOFENADINE 60 MG TAB PO SCH (09:54)
[2020-07-01] MEDS: lamoTRIgine 25MG TAB PO SCH ×2 (10:40→21:07)
--- NOTE | 2020-07-01 10:41 | MHHPEPDOC ---
General Date Of Admission: June 30, 2020 Legal Status: 9.39 Chief Complaint I was debating whether I should live". History of Present Illness HISTORY OF THE PRESENT ILLNESS: Patient is a 35 -year-old , male, who [has 1 prior inpatient admission 3 years and currently in treatment for ad dictions treatment at [facility]. Patient has a history of a benzodiazepine dependency, but had the detox and inpatient rehabilitation service done in 2016 and has been in good sobriety. Patient, however, started drinking heavily in 2017 and had 1 DWI arrest at the time had another DWI arrest recently in March at which time he finally went on sobriety. Patient has a history of a what appears to be a significant mood swings and possible type2. Bipolar disorder and had one inpatient treatment about 3 years. He reports poor response to combination of the medications including Depakote, Seroquel and Trileptal and Zoloft and currently not taking any psychotropic medicines. Medina rodriguez states that after his DWI arrest in March. He has been feeling increasingly depressed. She has been feeling extremely hopeless, helpless, worthless. Also, has no energy, unable to concentrate, poor sleep and lately he is failing, tired of life and started to wonder whether it's worth living or dying. After he expressed vague suicidal thoughts. His brought him to the emergency room and he was admitted on 9. Patient on examination with the M.D. patient is showing marked psychomotor retardation, with a blunted affect. Gets tearful and admits to suicidal thoughts but denies any intent or plan and is willing to accept treatment and wants to get better. He has family history of poor depression in his father side of family. There is denying any past history of a full blown manic and no history of psychosis. Psychiatric Review of Systems Depression (2 or more weeks): depressed mood, anhedonia, insomnia/hypersomnia, feelings of worthlesness, decreased energy, difficulty concentrating, psychomotor changes, suicidal thoughts Tova (4 or more days of): irritable/elevated mood, expansive mood, still with energy Psychosis: denies PTSD: denies Anxiety: gen/non-specific anxiety Anxiety/ 6 months or more of: restlessness, keyed up, difficulty concentrating, irritability Past Psychiatric History Previous Psychiatric Diagnosis: [History of hypomania, depression and substance abuse]. Previous Psychiatric Admissions: 1. Inpatient psychiatric admission 3 years ago and has a history of a detox and rehabilitation for benzodiazepine dependence . Suicide Attempts: [no history of suicidal attempt]. Psychiatric Follow-up: [Attend [facility] outpatient clinic for addictions]. Psychiatric medications: [, Poor response to Depakote, Trileptal, Seroquel and Zoloft]. Past Medical History Medical Problems Has a history of hypertension, hypothyroidism Head Injury: No Seizures: No Hospitalizations: No Surgeries: No Family Medical/Psychiatric HX Medical Problems Father has a schizophrenia, possible bipolar disorder and alcohol addiction Addiction History alcohol, other (. Benzodiazepine primarily Xanax and to 2017, but in sobriety at alcohol dependence between 2017 and 2020, but in sobriety since March this) Social History Childhood: [Born in [place], poor relationship with his biological father and also had a problem into his stepfather,]. Abuse/Trauma:[Denies any history of abuse]. Current Living Situation: [, , lives with his reports very happy, supportive ]. Education: High school. 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 Social Support: []. Legal: [DWI arrest in March and on probation for 5 years]. Marital: [Happily for 15 years, has 3 children. Denies any marital conflict]. Mental Status Examination General Appearance: well groomed, appears stated age Build: average Demeanor: average, withdrawn Eye Contact: average Activity: slowed, anxious Behavior: cooperative, loss of interests, withdrawn Speech: clear, slow, low in volume Mood: depressed, anxious Affect: constricted, appropriate, anxious Thought Process: logical/linear Thought Content (Delusions): none reported Thought Content (Other): none reported Thought Content (Aggressive): none reported Perception (Hallucinations): none reported Perception (Other): none reported Cognition (Impairment of): none reported Cognition(Intelligence Est.): average Oriented: Awake, Alert, Oriented times three Insight: fair Judgment: Fair Psychosis: Denies Diagnoses Major depression, recurrent, severe without psychosis , Rule out bipolar disorder type II, depressed Benzodiazepine dependence in remission since 2016 Alcohol use disorder in sobriety since March 2020 A-FIB/CHADSVASC A-FIB History Current/History of A-Fib/PAF?: No Current PO Anticoag Therapy: No Age/Risk Factor Scoring CHADSVASC: CHADSVASC Response (Comments) Value Gender Risk Factor Male 0 Hx of CHF No 0 Hx of HTN No 0 Hx of Stroke/TIA/or VTE No 0 Hx of Diabetes No 0 Hx of Vascular Disease No 0 Total 0 Treatment Treatment ordered: NONE Assessment Markedly depressed, anxious but not psychotic and denies any active suicidal plan or intent, but admits to vague thoughts. Clearly in need of a antidepressant treatment along with mood stabilizer. We will try combination of Lamictal and Wellbutrin and patient was explained the diagnosis and the nature of the medications, benefit and side effect and he is willing to cooperate Initial Treatment Plan 1. Patient was admitted on a [9.39] status. 2. Complete history was obtained. 3. With patients permission, family will be contacted and database will be expanded. 4. Patients medication regimen will be reviewed and changed accordingly. 5. Patient will be provided with protected environment. 6. Patient will be treated with individual, group, and milieu therapies. 7. Patient will receive supportive psych-education. 8. Discharge planning will commence immediately. 9. Outpatient follow-up treatment will be strongly recommended. 10. The initial treatment plan will focus initially on: * Depression. * Risk for suicide. ESTIMATED LENGTH OF STAY: - DAYS. TIME SPENT COUNSELING AND COORDINATING INITIAL CARE: minutes. Tobacco Cessation Screen Tobacco Cessation Tx Ordered?: No r/t failed trials N/A-No Antipsychotics Vital Signs Vital Signs Date Time Temp Pulse Resp B/P (MAP) Pulse Ox O2 Delivery O2 Flow Rate FiO2 07/01/20 06:31 98.1 66 18 123/80 (94) 96 Room Air Laboratory Data 24H Labs Laboratory Tests 2 06/30/20 10:44: Nucleated Red Blood Cells % (auto) 0.0, Anion Gap 8, Glomerular Filtration Rate > 60.0, Calcium Level 9.1, Total Bilirubin 0.6, Direct Bilirubin 0.2, Aspartate Amino Transf (AST/SGOT) 21, Alanine Aminotransferase (ALT/SGPT) 36, Alkaline Phosphatase 94, Total Protein 7.9, Albumin 4.2, Albumin/Globulin Ratio 1.1, Thyroid Stimulating Hormone (TSH) 2.380, Salicylates Level 4.2L, Urine Opiates Screen NEGATIVE, Urine Methadone Screen NEGATIVE, Acetaminophen Level < 2.0L, Urine Barbiturates Screen NEGATIVE, Urine Phencyclidine Screen NEGATIVE, Urine Amphetamines Screen NEGATIVE, Urine Benzodiazepines Screen NEGATIVE, Urine Cocaine Metabolite Screen NEGATIVE, Urine Cannabinoids Screen NEGATIVE, Ethyl Alcohol Level < 0.003 CBC/BMP Laboratory Tests 06/30/20 10:44 Medications Scheduled Fexofenadine HCl (Trinity Allergy) 180 Mg Tablet, 180 MG PO DAILY, (Reported) Hydroxyzine HCl (Hydroxyzine HCl) 25 Mg Tablet, 25 MG PO Q8H, (Reported) Levothyroxine Sodium (Levothyroxine Sodium) 50 Mcg Tablet, 50 MCG PO DAILY, (Reported) Lisinopril (Lisinopril) 40 Mg Tablet, 40 MG PO DAILY, (Reported) Pravastatin Sodium (Pravastatin Sodium) 20 Mg Tablet, 20 MG PO DAILY, (Reported) Pregabalin (Pregabalin) 100 Mg Capsule, 100 MG PO TID, (Reported) Secukinumab (Cosentyx Pen (2 Pens)) 150 Mg/1 Ml Pen.injctr, 150 MG SC MTHLY, (Reported) DUE FOR NEXT INJECTION 07/02/2020 Tizanidine HCl (Tizanidine HCl) 4 Mg Tablet, 4 MG PO TID, (Reported) Scheduled PRN Eszopiclone (Eszopiclone) 3 Mg Tablet, 3 MG PO QHS PRN for INSOMNIA, (Reported) Allergies Coded Allergies: cefuroxime (Verified Adverse Reaction, Intermediate, heart racing, 06/30/20) zolpidem (Verified Adverse Reaction, Unknown, 06/30/20) IWONA ROCHA M.D. July 01, 2020 10:40
[2020-07-01] MEDS: buPROPion (WELLBUTRIN SR) 100 MG SR TAB PO SCH (12:12)
[2020-07-01] MEDS: ACETAMINOPHEN TAB 650MG DOSE (2X325MG) PO PRN (14:36)
[2020-07-01] MEDS ORDERED: HYDROCORTISONE 1% CREAM 30 GM TOP PRN (17:00)
[2020-07-01 18:07] VITALS: BP 131/82
--- NOTE | 2020-07-01 20:41 | CR ---
CONSULTATION DATE: 07/01/2020 REASON FOR CONSULTATION: Medical evaluation of inpatient psychiatric admission. HISTORY OF PRESENT ILLNESS: Jose is a 35-year-old gentleman who has a history of benzo dependency, in remission since 2016, alcoholism with DUI's, as most recent as March. The patient is currently abstaining from alcohol. He has a history of hypertension. He has a history of hypothyroidism, He has a history of chronic neck pain syndrome secondary to degenerative cervical disk disease. The patient since being arrested in March for a DUI, has worsening depression and expressed some suicidal ideation and was admitted to the Inpatient Psychiatric Unit for treatment. We were asked to see the patient for a medical evaluation. ALLERGIES: 1. Cefuroxime. 2. Ambien. MEDICATIONS: His current medications at home are: 1. Fexofenadine 180 mg p.o. daily. 2. Hydroxyzine 25 mg every 8 hours. 3. Levothyroxine 2 mg daily. 4. 40 mg daily. 5. Pravastatin 20 mg p.o. daily. 6. Lyrica 100 mg p.o. three times daily. 7. Tizanidine 4 mg p.o. three times daily. PAST MEDICAL HISTORY: The patient's past medical history is as outlined above, significant for: 1. Alcoholism - currently abstaining for the last 3 months. 2. History of chronic pain syndrome secondary to chronic neck cervicalgia with degenerative disk disease. 3. History of hypertension. 4. Hypothyroidism. 5. History of hyperlipidemia. 6. History of obesity. PAST SURGICAL HISTORY: None. FAMILY HISTORY: The patient's family history is notable to schizophrenia and alcoholism. SOCIAL HISTORY: The patient is . 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 He lives with his . 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 The patient is a full code. REVIEW OF SYSTEMS: The patient reports having difficulty sleeping secondary to increasing neck pain. Initially he was concerned about small areas of erythema that he has developed since being in the Inpatient Psych Unit which look like bedbug bites. PHYSICAL EXAMINATION: VITAL SIGNS: Temperature is 98.8, pulse of 72, respirations 16, blood pressure 132/82, O2 sat is 96% on room air. GENERAL APPEARANCE: The patient is alert and oriented x3. He is in no acute distress. He is resting comfortably. He is obviously depressed. SKIN: Intact, warm to touch. He has some small areas of erythema which do not appear to be cellulitic, indicative of some form of bite from an insect. NECK: Supple. LUNGS: Sounds are present without rales or rhonchi. HEART: S1, S2, no murmurs or gallops. ABDOMEN: Protuberant, nontender, nondistended. EXTREMITIES: Without any clubbing, cyanosis, or edema. PERTINENT LABORATORY DATA: White count 7, hemoglobin 15, hematocrit 46, platelet count is 286. Sodium 142, potassium 4.1, chloride 111, bicarbonate 23, BUN is 7, creatinine is 0.63, glucose 92, calcium is 9.1, total bilirubin is 0.6, AST is 21, ALT is 36, total protein 7.9 albumin is 4.2, TSH is 2.38. Urine drug screen is negative. Salicylates, Acetaminophen and alcohol levels were all within normal limits. IMAGING DATA: No imaging studies were done. IMPRESSION AND PLAN: 1. Chronic pain syndrome we will increased the patient's Lyrica to 150 mg three times daily to see if this helps to ease his pain. Because he is concurrently on Lisinopril, the patient is at risk for the development of angioedema. This will need to be monitored. Should this occur we will need to discontinue these medications. 2. History of hypertension the patient's blood pressure is stable. Can continue on Lisinopril for now and once again, monitor for any development of angioedema from a combination of Lyrica and Lisinopril. 3. Hypothyroidism this is stable. The patient can be continued on his Levothyroxine. 4. History of depression with suicidal ideation - management per the Psychiatry Service. 5. What appears to be bedbug bites - The patient will be placed on Hydrocortisone for now as needed, twice daily. We will follow along with you. Thank you for this consultation.
[2020-07-01] MEDS: IBUPROFEN 600MG TAB PO PRN (21:07)
[2020-07-01] MEDS: diphenhydrAMINE 50MG CAP PO SCH (21:07)
[2020-07-01] MEDS: PREGABALIN 75 MG CAP(LYRICA) PO SCH (21:07)
[2020-07-01] MEDS: PRAVASTATIN 20 MG TAB PO SCH (21:07)
[2020-07-01] MEDS ORDERED: hydrOXYzine 50 MG TAB PO ONE (23:15)
[2020-07-02] MEDS: LEVOTHYROXINE 50MCG TABLET (0.05MG) PO SCH (05:52)
[2020-07-02 06:43] VITALS: BP 117/67
[2020-07-02] MEDS: NICOTINE 21MG/24HR 1 EA TRANSDERMAL TD SCH (08:25)
[2020-07-02] MEDS: PREGABALIN 75 MG CAP(LYRICA) PO SCH ×3 (08:30→21:05)
[2020-07-02] MEDS: buPROPion (WELLBUTRIN SR) 100 MG SR TAB PO SCH ×2 (08:30→21:05)
[2020-07-02] MEDS: FEXOFENADINE 60 MG TAB PO SCH (08:31)
[2020-07-02] MEDS: lamoTRIgine 25MG TAB PO SCH ×2 (08:31→21:06)
[2020-07-02] MEDS: tiZANidine 4 MG TAB PO SCH ×3 (08:31→21:06)
[2020-07-02] MEDS: LORazepam 1 MG TAB PO PRN ×2 (08:31→08:40)
[2020-07-02] MEDS: lisinopriL 40 MG TAB PO SCH (08:32)
[2020-07-02] MEDS: hydrOXYzine 25 MG TAB PO SCH ×3 (08:33→21:05)
[2020-07-02] MEDS ORDERED: hydrOXYzine 50 MG TAB PO PRN (08:45)
[2020-07-02] MEDS ORDERED: SECUKINUMAB 150 MG/ML SC SCH ×2 (09:00)
--- NOTE | 2020-07-02 09:05 | MHIPNPDOC ---
[facility] Progress Note Progress Note DATE OF SERVICE: 07/02/20 The patient is tolerating or the medicine without any side effects and is reporting that he stated that he feels a little better. His only complaint is that he had the difficult time falling asleep and had to ask for 50 mg of Atarax which helped him. He reports feeling more hopeful and does show a slightly more animated affect and denies any suicidal thoughts. He is to quite blunted and reports same symptoms of feeling hopeless, worthless, with the poor energy and concentration and being unable to function. HISTORY: . VITAL SIGNS: See below. NEW TEST RESULTS: . CURRENT MEDICATIONS: See below. MENTAL STATUS EXAMINATION: Patient is a 35-year old male, who is cooperative and pleasant]. Speech: Is [place] are coherent. Language skills are good. Thought processes including: , Organized. Thought content: , With no psychotic symptoms, but persistent thoughts of being worthless. Abstract reasoning, and computation: Good. Description of associations: , Organized. Description of abnormal or psychotic thoughts: None. Judgment: , Fair. Insight: Good. Orientation: , Well oriented. Recent and remote memory: Good. Attention span and concentration: , Fair. Language: . Fund of knowledge: Average. Mood: , Depressed, but appropriate . Affect: , Depressed, a little blunted but appropriate. DIAGNOSES: 1. Bipolar disorder type II, depressed. 2. . 3. . ASSESSMENT:Cooperating with the medications and feeling slightly better MANAGEMENT PLAN: Increase his Lamictal and Wellbutrin and continued supportive therapy. TIME SPENT: 20 minutes. Vital Signs Vital Signs Date Time Temp Pulse Resp B/P (MAP) Pulse Ox O2 Delivery O2 Flow Rate FiO2 07/02/20 06:43 97.3 57 16 117/67 (84) 100 Room Air Current Medications Current Medications Medications (Trade) Dose Ordered Sig/Katelin Route PRN Reason Start Time Stop Time Status Last Admin Dose Admin Acetaminophen (Tylenol Tab) 650 mg Q6HP PRN PO HEADACHE or DISCOMFORT 06/30/20 14:30 07/01/20 14:36 Al Hydrox/Mg Hydrox/Simethicone (Mylanta) 30 ml Q4HP PRN PO HEARTBURN/INDIGESTION 06/30/20 14:30 Bupropion HCl (Wellbutrin Sr) 100 mg BID PO 07/02/20 09:00 UNV Bupropion HCl (Wellbutrin Sr) 100 mg DAILY PO 07/01/20 09:00 07/02/20 08:58 DC 07/02/20 08:30 Diphenhydramine HCl (Benadryl) 50 mg QHS PO 06/30/20 21:00 07/01/20 21:07 Fexofenadine HCl (Trinity) 180 mg QAM PO 06/30/20 09:00 07/02/20 08:31 Home Med (Med Rec Complete!) ASDIRECTED XX 06/30/20 13:20 06/30/20 13:31 DC Home Med (Med Rec Complete!) ASDIRECTED XX 06/30/20 14:50 06/30/20 14:49 DC Hydrocortisone (Hydrocortisone 1% Cream) 1 dose BIDP PRN TOP ITCHING 07/01/20 17:00 Hydroxyzine HCl (Atarax) 25 mg TID PO 06/30/20 16:00 07/02/20 08:33 Hydroxyzine HCl (Atarax) 50 mg QHS PRN PO sleep 07/02/20 08:45 UNV Ibuprofen (Advil) 600 mg Q6HP PRN PO MODERATE PAIN (PS 5-7) 07/01/20 17:00 07/01/20 21:07 Lamotrigine (LaMICtal) 25 mg BID PO 07/01/20 09:00 07/02/20 08:58 DC 07/02/20 08:31 Lamotrigine (LaMICtal) 50 mg BID PO 07/02/20 09:00 UNV Levothyroxine Sodium (Synthroid) 50 mcg DAILY@06 PO 06/30/20 06:00 07/02/20 05:52 Lisinopril (Prinivil) 40 mg DAILY PO 07/01/20 09:00 06/30/20 14:25 DC Lisinopril (Prinivil) 40 mg DAILY PO 07/01/20 09:00 Lorazepam (Ativan) 1 mg Q6HP PRN PO ANXIETY 06/30/20 17:35 07/02/20 08:40 Magnesium Hydroxide (Milk Of Magnesia) 30 ml DAILYPRN PRN PO CONSTIPATION 06/30/20 14:30 Miscellaneous (Unresolved Patient Own Med Order) SEE LABEL COMMENTS DAILY XX 06/30/20 09:00 Nicotine (Nicoderm Cq 21mg) 1 patch DAILY TD 06/30/20 09:00 Patient Own Medication (Patient'S Own Med) 1 ML (150 MG) Q28D SC 07/02/20 09:00 06/30/20 16:50 DC Patient Own Medication (Patient'S Own Med) 1 ML (150 MG) Q28D SC 07/02/20 09:00 UNV Pravastatin Sodium (Pravachol) 20 mg QHS PO 06/30/20 21:00 07/01/20 21:07 Pregabalin (Lyrica) 100 mg TID PO 06/30/20 16:00 07/01/20 17:00 DC 07/01/20 15:46 Pregabalin (Lyrica) 150 mg TID PO 07/01/20 21:00 07/02/20 08:30 Tizanidine HCl (Zanaflex) 4 mg TID PO 06/30/20 16:00 07/02/20 08:31 Trazodone HCl (Desyrel) 50 mg QHSP PRN PO INSOMNIA 06/30/20 21:00 Cancel Allergies Coded Allergies: cefuroxime (Verified Adverse Reaction, Intermediate, heart racing, 06/30/20) zolpidem (Verified Adverse Reaction, Unknown, 06/30/20) IWONA ROCHA M.D. July 02, 2020 09:05
[2020-07-02 15:59] VITALS: BP 141/69
[2020-07-02] MEDS: IBUPROFEN 600MG TAB PO PRN (21:05)
[2020-07-02] MEDS: PRAVASTATIN 20 MG TAB PO SCH (21:06)
[2020-07-02] MEDS: diphenhydrAMINE 50MG CAP PO SCH (21:06)
[2020-07-02] MEDS ORDERED: LORazepam 1 MG TAB PO ONE (23:15)
[2020-07-03 06:06] VITALS: BP 126/75
[2020-07-03] MEDS: LEVOTHYROXINE 50MCG TABLET (0.05MG) PO SCH (06:08)
[2020-07-03] MEDS: lisinopriL 40 MG TAB PO SCH (09:00)
[2020-07-03] MEDS: NICOTINE 21MG/24HR 1 EA TRANSDERMAL TD SCH (09:00)
[2020-07-03] MEDS: buPROPion (WELLBUTRIN SR) 100 MG SR TAB PO SCH ×2 (09:44→21:08)
[2020-07-03] MEDS: PARoxetine 20MG TABLET PO SCH (09:44)
[2020-07-03] MEDS: PREGABALIN 75 MG CAP(LYRICA) PO SCH ×3 (09:44→21:08)
[2020-07-03] MEDS: lamoTRIgine 25MG TAB PO SCH ×2 (09:44→21:08)
[2020-07-03] MEDS: FEXOFENADINE 60 MG TAB PO SCH (09:44)
[2020-07-03] MEDS: LORazepam 1 MG TAB PO PRN ×2 (09:45→19:05)
[2020-07-03] MEDS: tiZANidine 4 MG TAB PO SCH ×3 (09:45→21:08)
--- NOTE | 2020-07-03 10:45 | MHIPNPDOC ---
[facility] Progress Note Progress Note DATE OF SERVICE: 07/03/20 Patient has cooperated with all the medications, but had significant difficulty in the evening due to persistent anxiety and panic symptoms. Patient reported no relief from Atarax and finally was given 1 mg of Ativan with some relief. The patient denies any clear reason for his anxiety, but stated that he is feeling constantly anxious with vague fear and at times feeling panicky but denies any suicidal thoughts. He understands the problem with taking any benzodiazepine and is not asking for long-term use, but stated that he cannot maintain any peace at this time and is not getting any relief from other medicine. He agreed to try Paxil in combination with his Wellbutrin, but probably need short-term use of Ativan to control his immediate anxiety. I will give Ativan 1 mg q8hr for the next 3 days while we titrate his antidepressant medicine and Lamictal. HISTORY: . VITAL SIGNS: See below. NEW TEST RESULTS: . CURRENT MEDICATIONS: See below. MENTAL STATUS EXAMINATION: Patient is a 35-year old male, who is , tearful at times and very dramatic at times. Speech: Is rational, coherent. Language skills are good. Thought processes including: , Relevant, organized. Thought content: Denies any psychotic symptoms and denies any active suicidal plan or intent . Abstract reasoning, and computation: Good. Description of associations: , Organized. Description of abnormal or psychotic thoughts: None. Judgment: , Fair. Insight fair]. Orientation: , Well oriented. Recent and remote memory: Good. Attention span and concentration: Good. Language: ]. Fund of knowledge: [Average]. Mood: [, Depressed, anxious, tearful]. Affect: [, Appropriate, but markedly depressed and anxious]. DIAGNOSES: 1. . Bipolar disorder, depressed 2. . History of benzodiazepine and alcohol use disorder in remission 3. . ASSESSMENT:[Markedly anxious and depressed] MANAGEMENT PLAN: [. Continue with the Wellbutrin and Lamictal. add Paxil]., Ativan as needed for 3 days TIME SPENT: [20] minutes. Vital Signs Vital Signs Date Time Temp Pulse Resp B/P (MAP) Pulse Ox O2 Delivery O2 Flow Rate FiO2 07/03/20 06:06 97.4 53 18 126/75 (92) 99 Room Air Current Medications Current Medications Medications (Trade) Dose Ordered Sig/Katelin Route PRN Reason Start Time Stop Time Status Last Admin Dose Admin Acetaminophen (Tylenol Tab) 650 mg Q6HP PRN PO HEADACHE or DISCOMFORT 06/30/20 14:30 07/01/20 14:36 Al Hydrox/Mg Hydrox/Simethicone (Mylanta) 30 ml Q4HP PRN PO HEARTBURN/INDIGESTION 06/30/20 14:30 Bupropion HCl (Wellbutrin Sr) 100 mg BID PO 07/02/20 21:00 07/03/20 09:44 Bupropion HCl (Wellbutrin Sr) 100 mg DAILY PO 07/01/20 09:00 07/02/20 08:58 DC 07/02/20 08:30 Diphenhydramine HCl (Benadryl) 50 mg QHS PO 06/30/20 21:00 07/02/20 21:06 Fexofenadine HCl (Trinity) 180 mg QAM PO 06/30/20 09:00 07/03/20 09:44 Home Med (Med Rec Complete!) ASDIRECTED XX 06/30/20 13:20 06/30/20 13:31 DC Home Med (Med Rec Complete!) ASDIRECTED XX 06/30/20 14:50 06/30/20 14:49 DC Hydrocortisone (Hydrocortisone 1% Cream) 1 dose BIDP PRN TOP ITCHING 07/01/20 17:00 Hydroxyzine HCl (Atarax) 25 mg TID PO 06/30/20 16:00 07/03/20 09:33 DC 07/02/20 21:05 Hydroxyzine HCl (Atarax) 50 mg QHS PRN PO sleep 07/02/20 08:45 07/03/20 09:33 DC 07/02/20 21:06 Ibuprofen (Advil) 600 mg Q6HP PRN PO MODERATE PAIN (PS 5-7) 07/01/20 17:00 07/02/20 21:05 Lamotrigine (LaMICtal) 25 mg BID PO 07/01/20 09:00 07/02/20 08:58 DC 07/02/20 08:31 Lamotrigine (LaMICtal) 50 mg BID PO 07/02/20 21:00 07/03/20 09:44 Levothyroxine Sodium (Synthroid) 50 mcg DAILY@06 PO 06/30/20 06:00 07/03/20 06:08 Lisinopril (Prinivil) 40 mg DAILY PO 07/01/20 09:00 06/30/20 14:25 DC Lisinopril (Prinivil) 40 mg DAILY PO 07/01/20 09:00 Lorazepam (Ativan) 1 mg Q6HP PRN PO ANXIETY 06/30/20 17:35 07/02/20 08:59 DC 07/02/20 08:40 Lorazepam (Ativan) 1 mg Q8HP PRN PO ANXIETY 07/03/20 09:30 07/06/20 09:29 07/03/20 09:45 Magnesium Hydroxide (Milk Of Magnesia) 30 ml DAILYPRN PRN PO CONSTIPATION 06/30/20 14:30 Miscellaneous (Unresolved Patient Own Med Order) SEE LABEL COMMENTS DAILY XX 06/30/20 09:00 Nicotine (Nicoderm Cq 21mg) 1 patch DAILY TD 06/30/20 09:00 Paroxetine HCl (PAXil) 20 mg DAILY PO 07/03/20 09:00 07/03/20 09:44 Patient Own Medication (Patient'S Own Med) 1 ML (150 MG) Q28D SC 07/02/20 09:00 06/30/20 16:50 DC Patient Own Medication (Patient'S Own Med) 1 ML (150 MG) Q28D SC 07/02/20 09:00 UNV Pravastatin Sodium (Pravachol) 20 mg QHS PO 06/30/20 21:00 07/02/20 21:06 Pregabalin (Lyrica) 100 mg TID PO 06/30/20 16:00 07/01/20 17:00 DC 07/01/20 15:46 Pregabalin (Lyrica) 150 mg TID PO 07/01/20 21:00 07/03/20 09:44 Tizanidine HCl (Zanaflex) 4 mg TID PO 06/30/20 16:00 07/03/20 09:45 Trazodone HCl (Desyrel) 50 mg QHSP PRN PO INSOMNIA 06/30/20 21:00 Cancel Allergies Coded Allergies: cefuroxime (Verified Adverse Reaction, Intermediate, heart racing, 06/30/20) zolpidem (Verified Adverse Reaction, Unknown, 06/30/20) IWONA ROCHA M.D. July 03, 2020 10:45
[2020-07-03 18:21] VITALS: BP 142/72
[2020-07-03] MEDS: IBUPROFEN 600MG TAB PO PRN (19:06)
[2020-07-03] MEDS: PRAVASTATIN 20 MG TAB PO SCH (21:08)
[2020-07-03] MEDS: diphenhydrAMINE 50MG CAP PO SCH (21:08)
[2020-07-03] MEDS: ACETAMINOPHEN TAB 650MG DOSE (2X325MG) PO PRN (21:10)
[2020-07-03] MEDS: traZODone 100 MG TAB PO PRN (22:07)
[2020-07-04] MEDS: LEVOTHYROXINE 50MCG TABLET (0.05MG) PO SCH (05:37)
[2020-07-04 06:30] VITALS: BP 116/60
[2020-07-04] MEDS: NICOTINE 21MG/24HR 1 EA TRANSDERMAL TD SCH (08:37)
[2020-07-04] MEDS: LORazepam 1 MG TAB PO PRN ×2 (08:41→16:49)
[2020-07-04] MEDS: FEXOFENADINE 60 MG TAB PO SCH (08:41)
[2020-07-04] MEDS: buPROPion (WELLBUTRIN SR) 100 MG SR TAB PO SCH ×2 (08:42→20:05)
[2020-07-04] MEDS: PREGABALIN 75 MG CAP(LYRICA) PO SCH ×3 (08:42→20:05)
[2020-07-04] MEDS: PARoxetine 20MG TABLET PO SCH (08:42)
[2020-07-04] MEDS: lisinopriL 40 MG TAB PO SCH (08:42)
[2020-07-04] MEDS: tiZANidine 4 MG TAB PO SCH ×3 (08:42→20:05)
[2020-07-04] MEDS: IBUPROFEN 600MG TAB PO PRN ×2 (08:43→22:41)
[2020-07-04] MEDS: lamoTRIgine 25MG TAB PO SCH ×2 (08:43→20:05)
[2020-07-04] MEDS ORDERED: EPINEPHrine INJ 1 MG/ML 1ML AMP IM PRN (09:25)
[2020-07-04 16:44] VITALS: BP 140/62
--- NOTE | 2020-07-04 18:25 | MHIPN ---
[facility] PROGRESS NOTE DATE: 07/04/2020 The patient is seen via telepsychiatry. He complains of being very anxious. He was just started on some Ativan, but despite this he is still complaining of feeling pretty anxious. MENTAL STATUS EXAMINATION: He is alert and oriented times three. Eye contact is fair. Psychomotor activity is increased due to anxiety. No formal thought disorder noted. Mood is anxious. Affect appropriate. He is not psychotic, suicidal, or homicidal. Concentration is fair. Memory intact. Insight and judgment are fair. DIAGNOSES: 1. Bipolar disorder, depressed type. 2. History of benzodiazepine and alcohol use disorder, in remission. TREATMENT PLAN: We will continue to monitor the patient for further stabilization of his mood and continued resolution of any suicidal ideation.
[2020-07-04] MEDS: PRAVASTATIN 20 MG TAB PO SCH (20:05)
[2020-07-04] MEDS: diphenhydrAMINE 50MG CAP PO SCH (20:05)
[2020-07-04] MEDS: ACETAMINOPHEN TAB 650MG DOSE (2X325MG) PO PRN (20:07)
[2020-07-04] MEDS: traZODone 100 MG TAB PO PRN (22:41)
[2020-07-05] MEDS: LEVOTHYROXINE 50MCG TABLET (0.05MG) PO SCH (05:33)
[2020-07-05] MEDS: LORazepam 1 MG TAB PO PRN ×3 (05:35→23:07)
[2020-07-05] MEDS: ACETAMINOPHEN TAB 650MG DOSE (2X325MG) PO PRN (05:36)
[2020-07-05 06:31] VITALS: BP 105/53
[2020-07-05] MEDS: NICOTINE 21MG/24HR 1 EA TRANSDERMAL TD SCH (09:00)
[2020-07-05] MEDS: FEXOFENADINE 60 MG TAB PO SCH (09:16)
[2020-07-05] MEDS: lamoTRIgine 25MG TAB PO SCH ×2 (09:17→20:54)
[2020-07-05] MEDS: tiZANidine 4 MG TAB PO SCH ×3 (09:17→20:53)
[2020-07-05] MEDS: PARoxetine 20MG TABLET PO SCH (09:18)
[2020-07-05] MEDS: buPROPion (WELLBUTRIN SR) 100 MG SR TAB PO SCH ×2 (09:18→20:54)
[2020-07-05] MEDS: PREGABALIN 75 MG CAP(LYRICA) PO SCH ×3 (09:18→20:54)
[2020-07-05] MEDS: IBUPROFEN 600MG TAB PO PRN (14:19)
[2020-07-05 18:00] VITALS: BP 153/81
[2020-07-05] MEDS: PRAVASTATIN 20 MG TAB PO SCH (20:53)
[2020-07-05] MEDS: diphenhydrAMINE 50MG CAP PO SCH (20:54)
[2020-07-05] MEDS: traZODone 100 MG TAB PO PRN (23:07)
[2020-07-06] MEDS: LEVOTHYROXINE 50MCG TABLET (0.05MG) PO SCH (06:03)
[2020-07-06 06:59] VITALS: BP 124/55
[2020-07-06] MEDS: NICOTINE 21MG/24HR 1 EA TRANSDERMAL TD SCH (08:41)
[2020-07-06] MEDS: FEXOFENADINE 60 MG TAB PO SCH (08:43)
[2020-07-06] MEDS: buPROPion **SR TABLET** (ZYBAN) 150MG PO SCH ×2 (08:44→21:09)
[2020-07-06] MEDS: lamoTRIgine 100MG TAB PO SCH ×2 (08:44→21:10)
[2020-07-06] MEDS: PARoxetine 20MG TABLET PO SCH (08:44)
[2020-07-06] MEDS: PREGABALIN 75 MG CAP(LYRICA) PO SCH ×3 (08:45→21:09)
[2020-07-06] MEDS: tiZANidine 4 MG TAB PO SCH ×3 (08:47→21:10)
[2020-07-06] MEDS: IBUPROFEN 600MG TAB PO PRN ×2 (08:49→21:10)
[2020-07-06] MEDS ORDERED: buPROPion (WELLBUTRIN SR) 100 MG SR TAB PO SCH (09:00)
--- NOTE | 2020-07-06 11:35 | MHIPNPDOC ---
[facility] Progress Note Progress Note DATE OF SERVICE: 07/06/20 The patient reports that he is still extremely anxious, fearful, depressed and not sleeping. He apparently is very preoccupied with his recent alcohol relapse and is afraid of being violated by his environmental conservation officer and is afraid of going back to [facility].. He is tolerating new medication, but reports minimal relief but denies any significant side effect due to his severe anxiety. We will continue his when necessary Ativan. We will also increase his Lamictal and Wellbutrin and continue with the support of the HISTORY: . VITAL SIGNS: See below. NEW TEST RESULTS: . CURRENT MEDICATIONS: See below. MENTAL STATUS EXAMINATION: Patient is a 35-year old male, who is , very anxious and preoccupied. Speech: Is , not spontaneous. Language skills are good. Thought processes including: Relevant and organized. Thought content: Preoccupied with the anxiety and fear. Abstract reasoning, and computation: , Fair. Description of associations: , Relevant and organized. Description of abnormal or psychotic thoughts: . No psychotic symptoms. Judgment: , Fair. Insight: , Fair. Orientation: , Oriented. Recent and remote memory: Good. Attention span and concentration: , Only fair. Language: . Fund of knowledge: Average. Mood: , Markedly anxious, depressed, fearful. Affect: Appropriate, but very anxious]. DIAGNOSES: 1. . Bipolar disorder type II, depressed 2. . 3. . ASSESSMENT:Remains highly anxious, depressed MANAGEMENT PLAN: Supportive therapy. Continue with increase the medications. TIME SPENT: 20 minutes. Vital Signs Vital Signs Date Time Temp Pulse Resp B/P (MAP) Pulse Ox O2 Delivery O2 Flow Rate FiO2 07/06/20 08:43 70 124/55 07/06/20 06:59 98.4 20 97 Room Air Current Medications Current Medications Medications (Trade) Dose Ordered Sig/Katelin Route PRN Reason Start Time Stop Time Status Last Admin Dose Admin Acetaminophen (Tylenol Tab) 650 mg Q6HP PRN PO HEADACHE or DISCOMFORT 06/30/20 14:30 07/05/20 05:36 Al Hydrox/Mg Hydrox/Simethicone (Mylanta) 30 ml Q4HP PRN PO HEARTBURN/INDIGESTION 06/30/20 14:30 Amlodipine Besylate (Norvasc) 10 mg DAILY PO 07/05/20 09:00 07/06/20 08:43 Bupropion HCl (Wellbutrin Sr) 100 mg BID PO 07/02/20 21:00 07/06/20 08:25 DC 07/05/20 20:54 Bupropion HCl (Wellbutrin Sr) 100 mg DAILY PO 07/01/20 09:00 07/02/20 08:58 DC 07/02/20 08:30 Bupropion HCl (Wellbutrin Sr) 150 mg BID PO 07/06/20 09:00 07/06/20 08:44 DC Bupropion HCl (Zyban, Wellbutrin Sr) 150 mg BID PO 07/06/20 09:00 07/06/20 08:44 Diphenhydramine HCl (Benadryl) 50 mg QHS PO 06/30/20 21:00 07/05/20 20:54 Epinephrine HCl (Adrenalin) 0.3 mg ASDIRECTED PRN IM ANAPHYLAXIS 07/04/20 09:25 Fexofenadine HCl (Trinity) 180 mg QAM PO 06/30/20 09:00 07/06/20 08:43 Home Med (Med Rec Complete!) ASDIRECTED XX 06/30/20 13:20 06/30/20 13:31 DC Home Med (Med Rec Complete!) ASDIRECTED XX 06/30/20 14:50 06/30/20 14:49 DC Hydrocortisone (Hydrocortisone 1% Cream) 1 dose BIDP PRN TOP ITCHING 07/01/20 17:00 Hydroxyzine HCl (Atarax) 25 mg TID PO 06/30/20 16:00 07/03/20 09:33 DC 07/02/20 21:05 Hydroxyzine HCl (Atarax) 50 mg QHS PRN PO sleep 07/02/20 08:45 07/03/20 09:33 DC 07/02/20 21:06 Ibuprofen (Advil) 600 mg Q6HP PRN PO MODERATE PAIN (PS 5-7) 07/01/20 17:00 07/06/20 08:49 Lamotrigine (LaMICtal) 25 mg BID PO 07/01/20 09:00 07/02/20 08:58 DC 07/02/20 08:31 Lamotrigine (LaMICtal) 50 mg BID PO 07/02/20 21:00 07/06/20 08:29 DC 07/05/20 20:54 Lamotrigine (LaMICtal) 100 mg BID PO 07/06/20 09:00 07/06/20 08:44 Levothyroxine Sodium (Synthroid) 50 mcg DAILY@06 PO 06/30/20 06:00 07/06/20 06:03 Lisinopril (Prinivil) 40 mg DAILY PO 07/01/20 09:00 06/30/20 14:25 DC Lisinopril (Prinivil) 40 mg DAILY PO 07/01/20 09:00 07/04/20 09:29 DC 07/04/20 08:42 Lorazepam (Ativan) 1 mg Q6HP PRN PO ANXIETY 06/30/20 17:35 07/02/20 08:59 DC 07/02/20 08:40 Lorazepam (Ativan) 1 mg Q8HP PRN PO ANXIETY 07/03/20 09:30 07/06/20 09:29 DC 07/05/20 23:07 Magnesium Hydroxide (Milk Of Magnesia) 30 ml DAILYPRN PRN PO CONSTIPATION 06/30/20 14:30 Miscellaneous (Unresolved Patient Own Med Order) SEE LABEL COMMENTS DAILY XX 06/30/20 09:00 Nicotine (Nicoderm Cq 21mg) 1 patch DAILY TD 06/30/20 09:00 Paroxetine HCl (PAXil) 20 mg DAILY PO 07/03/20 09:00 07/06/20 08:44 Patient Own Medication (Patient'S Own Med) 1 ML (150 MG) Q28D SC 07/02/20 09:00 06/30/20 16:50 DC Patient Own Medication (Patient'S Own Med) 1 ML (150 MG) Q28D SC 07/02/20 09:00 UNV Pravastatin Sodium (Pravachol) 20 mg QHS PO 06/30/20 21:00 07/05/20 20:53 Pregabalin (Lyrica) 100 mg TID PO 06/30/20 16:00 07/01/20 17:00 DC 07/01/20 15:46 Pregabalin (Lyrica) 150 mg TID PO 07/01/20 21:00 07/06/20 08:45 Tizanidine HCl (Zanaflex) 4 mg TID PO 06/30/20 16:00 07/06/20 08:47 Trazodone HCl (Desyrel) 50 mg QHSP PRN PO INSOMNIA 06/30/20 21:00 Cancel Trazodone HCl (Desyrel) 100 mg QHSP PRN PO insomnia 07/03/20 21:10 07/06/20 08:25 DC 07/05/20 23:07 Trazodone HCl (Desyrel) 150 mg QHS PO 07/06/20 21:00 Allergies Coded Allergies: cefuroxime (Verified Adverse Reaction, Intermediate, heart racing, 06/30/20) zolpidem (Verified Adverse Reaction, Unknown, 06/30/20) IWONA ROCHA M.D. July 06, 2020 11:35
[2020-07-06] MEDS: ACETAMINOPHEN TAB 650MG DOSE (2X325MG) PO PRN ×2 (16:36→22:55)
[2020-07-06 18:48] VITALS: BP 113/56
[2020-07-06] MEDS: diphenhydrAMINE 50MG CAP PO SCH (21:09)
[2020-07-06] MEDS: PRAVASTATIN 20 MG TAB PO SCH (21:09)
[2020-07-06] MEDS: LORazepam 1 MG TAB PO PRN (22:54)
[2020-07-06] MEDS: traZODone 50 MG TAB PO SCH (22:54)
[2020-07-07] MEDS: LEVOTHYROXINE 50MCG TABLET (0.05MG) PO SCH (06:02)
[2020-07-07 06:31] VITALS: BP 127/61
[2020-07-07] MEDS: LORazepam 1 MG TAB PO PRN ×2 (09:15→23:09)
[2020-07-07] MEDS: IBUPROFEN 600MG TAB PO PRN ×2 (09:16→21:26)
[2020-07-07] MEDS: PREGABALIN 75 MG CAP(LYRICA) PO SCH ×3 (09:16→21:26)
[2020-07-07] MEDS: buPROPion **SR TABLET** (ZYBAN) 150MG PO SCH ×2 (09:16→21:25)
[2020-07-07] MEDS: FEXOFENADINE 60 MG TAB PO SCH (09:16)
[2020-07-07] MEDS: tiZANidine 4 MG TAB PO SCH ×3 (09:17→21:26)
[2020-07-07] MEDS: PARoxetine 20MG TABLET PO SCH (09:17)
[2020-07-07] MEDS: lamoTRIgine 100MG TAB PO SCH ×2 (09:17→21:26)
--- NOTE | 2020-07-07 10:26 | MHIPNPDOC ---
[facility] Progress Note Progress Note DATE OF SERVICE: 07/07/20 The patient slept a little better last night and feels a little better rested. He states that his anxiety is still very high and has been utilizing Ativan as n eeded. He is of managing that he is quite worried about his being violated for his probation and was told by his that he has a warrant out for his arrest. He is steadily afraid to be locked up and not getting his medications, which adds to his anxiety. He is cooperating and tolerating his medication changes, but remained highly anxious, depressed and preoccupied. HISTORY: . VITAL SIGNS: See below. NEW TEST RESULTS: . CURRENT MEDICATIONS: See below. MENTAL STATUS EXAMINATION: Patient is a 35-year old male, who is , anxious but cooperative. Speech: Is rational, coherent. Language skills are good. Thought processes including: Relevant and productive. Thought content: Preoccupied with his current legal situations. Abstract reasoning, and computation: , Fair. Description of associations: , Organized. Description of abnormal or psychotic thoughts: . No gross psychotic symptoms. Judgment: , Fair. Insight: fair. . Orientation: , Oriented. Recent and remote memory: Good. Attention span and concentration: , Fair. Language: . Fund of knowledge: Average. Mood: , Anxious, depressed, fearful. Affect: , Anxious, but appropriate. DIAGNOSES: 1. . Bipolar disorder type II, depressed 2. . 3. . ASSESSMENT:Remained very anxious, depressed, preoccupied MANAGEMENT PLAN: Continuing to his current medicine and supportive therapy. TIME SPENT: [place] minutes. Vital Signs Vital Signs Date Time Temp Pulse Resp B/P (MAP) Pulse Ox O2 Delivery O2 Flow Rate FiO2 07/07/20 09:17 67 133/79 07/07/20 06:31 98.6 18 97 Room Air Current Medications Current Medications Medications (Trade) Dose Ordered Sig/Katelin Route PRN Reason Start Time Stop Time Status Last Admin Dose Admin Acetaminophen (Tylenol Tab) 650 mg Q6HP PRN PO HEADACHE or DISCOMFORT 06/30/20 14:30 07/06/20 22:55 Al Hydrox/Mg Hydrox/Simethicone (Mylanta) 30 ml Q4HP PRN PO HEARTBURN/INDIGESTION 06/30/20 14:30 Amlodipine Besylate (Norvasc) 10 mg DAILY PO 07/05/20 09:00 07/07/20 09:17 Bupropion HCl (Wellbutrin Sr) 100 mg BID PO 07/02/20 21:00 07/06/20 08:25 DC 07/05/20 20:54 Bupropion HCl (Wellbutrin Sr) 100 mg DAILY PO 07/01/20 09:00 07/02/20 08:58 DC 07/02/20 08:30 Bupropion HCl (Wellbutrin Sr) 150 mg BID PO 07/06/20 09:00 07/06/20 08:44 DC Bupropion HCl (Zyban, Wellbutrin Sr) 150 mg BID PO 07/06/20 09:00 07/07/20 09:16 Diphenhydramine HCl (Benadryl) 50 mg QHS PO 06/30/20 21:00 07/06/20 21:09 Epinephrine HCl (Adrenalin) 0.3 mg ASDIRECTED PRN IM ANAPHYLAXIS 07/04/20 09:25 Fexofenadine HCl (Trinity) 180 mg QAM PO 06/30/20 09:00 07/07/20 09:16 Home Med (Med Rec Complete!) ASDIRECTED XX 06/30/20 13:20 06/30/20 13:31 DC Home Med (Med Rec Complete!) ASDIRECTED XX 06/30/20 14:50 06/30/20 14:49 DC Hydrocortisone (Hydrocortisone 1% Cream) 1 dose BIDP PRN TOP ITCHING 07/01/20 17:00 Hydroxyzine HCl (Atarax) 25 mg TID PO 06/30/20 16:00 07/03/20 09:33 DC 07/02/20 21:05 Hydroxyzine HCl (Atarax) 50 mg QHS PRN PO sleep 07/02/20 08:45 07/03/20 09:33 DC 07/02/20 21:06 Ibuprofen (Advil) 600 mg Q6HP PRN PO MODERATE PAIN (PS 5-7) 07/01/20 17:00 07/07/20 09:16 Lamotrigine (LaMICtal) 25 mg BID PO 07/01/20 09:00 07/02/20 08:58 DC 07/02/20 08:31 Lamotrigine (LaMICtal) 50 mg BID PO 07/02/20 21:00 07/06/20 08:29 DC 07/05/20 20:54 Lamotrigine (LaMICtal) 100 mg BID PO 07/06/20 09:00 07/07/20 09:17 Levothyroxine Sodium (Synthroid) 50 mcg DAILY@06 PO 06/30/20 06:00 07/07/20 06:02 Lisinopril (Prinivil) 40 mg DAILY PO 07/01/20 09:00 06/30/20 14:25 DC Lisinopril (Prinivil) 40 mg DAILY PO 07/01/20 09:00 07/04/20 09:29 DC 07/04/20 08:42 Lorazepam (Ativan) 1 mg Q6HP PRN PO ANXIETY 06/30/20 17:35 07/02/20 08:59 DC 07/02/20 08:40 Lorazepam (Ativan) 1 mg Q8HP PRN PO ANXIETY 07/03/20 09:30 07/06/20 09:29 DC 07/05/20 23:07 Lorazepam (Ativan) 1 mg Q8HP PRN PO ANXIETY 07/06/20 21:20 07/09/20 21:00 07/07/20 09:15 Magnesium Hydroxide (Milk Of Magnesia) 30 ml DAILYPRN PRN PO CONSTIPATION 06/30/20 14:30 Miscellaneous (Unresolved Clarification Entry) SEE LABEL COMMENTS DAILY XX 07/06/20 09:00 Miscellaneous (Unresolved Patient Own Med Order) SEE LABEL COMMENTS DAILY XX 06/30/20 09:00 Nicotine (Nicoderm Cq 21mg) 1 patch DAILY TD 06/30/20 09:00 07/06/20 15:18 DC Paroxetine HCl (PAXil) 20 mg DAILY PO 07/03/20 09:00 07/07/20 09:17 Patient Own Medication (Patient'S Own Med) 1 ML (150 MG) Q28D SC 07/02/20 09:00 06/30/20 16:50 DC Patient Own Medication (Patient'S Own Med) 1 ML (150 MG) Q28D SC 07/02/20 09:00 UNV Pravastatin Sodium (Pravachol) 20 mg QHS PO 06/30/20 21:00 07/06/20 21:09 Pregabalin (Lyrica) 100 mg TID PO 06/30/20 16:00 07/01/20 17:00 DC 07/01/20 15:46 Pregabalin (Lyrica) 150 mg TID PO 07/01/20 21:00 07/07/20 09:16 Tizanidine HCl (Zanaflex) 4 mg TID PO 06/30/20 16:00 07/07/20 09:17 Trazodone HCl (Desyrel) 50 mg QHSP PRN PO INSOMNIA 06/30/20 21:00 Cancel Trazodone HCl (Desyrel) 100 mg QHSP PRN PO insomnia 07/03/20 21:10 07/06/20 08:25 DC 07/05/20 23:07 Trazodone HCl (Desyrel) 150 mg QHS PO 07/06/20 21:00 07/06/20 22:54 Allergies Coded Allergies: cefuroxime (Verified Adverse Reaction, Intermediate, heart racing, 06/30/20) zolpidem (Verified Adverse Reaction, Unknown, 06/30/20) IWONA ROCHA M.D. July 07, 2020 10:26
[2020-07-07 16:06] VITALS: BP 134/65
[2020-07-07] MEDS: PRAVASTATIN 20 MG TAB PO SCH (21:26)
[2020-07-07] MEDS: diphenhydrAMINE 50MG CAP PO SCH (21:26)
[2020-07-07] MEDS: traZODone 50 MG TAB PO SCH (23:08)
[2020-07-07] MEDS: ACETAMINOPHEN TAB 650MG DOSE (2X325MG) PO PRN (23:09)
[2020-07-08] MEDS: LEVOTHYROXINE 50MCG TABLET (0.05MG) PO SCH (06:00)
[2020-07-08 06:51] VITALS: BP 113/56
[2020-07-08] MEDS: PARoxetine 20MG TABLET PO SCH (08:44)
[2020-07-08] MEDS: lamoTRIgine 100MG TAB PO SCH ×2 (08:44→21:16)
[2020-07-08] MEDS: tiZANidine 4 MG TAB PO SCH ×3 (08:44→21:16)
[2020-07-08] MEDS: PREGABALIN 75 MG CAP(LYRICA) PO SCH ×3 (08:44→21:16)
[2020-07-08] MEDS: buPROPion **SR TABLET** (ZYBAN) 150MG PO SCH ×2 (08:44→21:16)
[2020-07-08] MEDS: IBUPROFEN 600MG TAB PO PRN ×2 (08:49→21:17)
[2020-07-08] MEDS: LORazepam 1 MG TAB PO PRN ×2 (08:49→17:35)
[2020-07-08] MEDS: FEXOFENADINE 60 MG TAB PO SCH (09:58)
--- NOTE | 2020-07-08 10:11 | MHIPNPDOC ---
[facility] Progress Note Progress Note DATE OF SERVICE: 07/08/20 The patient remains a very anxious, fearful and depressed. He stated he tried to call his chief risk officer yesterday, but when he was connected the chief risk officer only responded that he is aware of his situation and then hung up. The patient is understandably anxious and fearful, especially with his second DWI. That may result in his reincarceration. He is denying any active suicidal plan but is afraid that he may not survive." He is in need of further stabilization. Due to his severe anxiety and depression HISTORY: . VITAL SIGNS: See below. NEW TEST RESULTS: . CURRENT MEDICATIONS: See below. MENTAL STATUS EXAMINATION: Patient is a 35-year old male, who is , withdrawn and anxious. Speech: Is rational but not very productive. Language skills are good. Thought processes including: Relevant and coherent. Thought content: Preoccupied with is a fear and anxiety. Abstract reasoning, and computation: Good. Description of associations: , Organized. Description of abnormal or psychotic thoughts: None. Judgment: , Fair. Insight: fair. ]. Orientation: Well oriented . Recent and remote memory: Good. Attention span and concentration: Fair . Language: . Fund of knowledge: Average. Mood: , Anxious, depressed. Affect: ], Appropriate but blunted. DIAGNOSES: 1. . Bipolar disorder type II, depressed 2. . 3. . ASSESSMENT:[Remains anxious and depressed] MANAGEMENT PLAN: [Increase of Paxil to 30 mg daily]. TIME SPENT: [[place]] minutes. Vital Signs Vital Signs Date Time Temp Pulse Resp B/P (MAP) Pulse Ox O2 Delivery O2 Flow Rate FiO2 07/08/20 08:45 69 135/71 07/08/20 06:51 97.3 18 96 Room Air Current Medications Current Medications Medications (Trade) Dose Ordered Sig/Katelin Route PRN Reason Start Time Stop Time Status Last Admin Dose Admin Acetaminophen (Tylenol Tab) 650 mg Q6HP PRN PO HEADACHE or DISCOMFORT 06/30/20 14:30 07/07/20 23:09 Al Hydrox/Mg Hydrox/Simethicone (Mylanta) 30 ml Q4HP PRN PO HEARTBURN/INDIGESTION 06/30/20 14:30 Amlodipine Besylate (Norvasc) 10 mg DAILY PO 07/05/20 09:00 07/08/20 08:45 Bupropion HCl (Wellbutrin Sr) 100 mg BID PO 07/02/20 21:00 07/06/20 08:25 DC 07/05/20 20:54 Bupropion HCl (Wellbutrin Sr) 100 mg DAILY PO 07/01/20 09:00 07/02/20 08:58 DC 07/02/20 08:30 Bupropion HCl (Wellbutrin Sr) 150 mg BID PO 07/06/20 09:00 07/06/20 08:44 DC Bupropion HCl (Zyban, Wellbutrin Sr) 150 mg BID PO 07/06/20 09:00 07/08/20 08:44 Diphenhydramine HCl (Benadryl) 50 mg QHS PO 06/30/20 21:00 07/07/20 21:26 Epinephrine HCl (Adrenalin) 0.3 mg ASDIRECTED PRN IM ANAPHYLAXIS 07/04/20 09:25 Fexofenadine HCl (Trinity) 180 mg QAM PO 06/30/20 09:00 07/08/20 09:58 Home Med (Med Rec Complete!) ASDIRECTED XX 06/30/20 13:20 06/30/20 13:31 DC Home Med (Med Rec Complete!) ASDIRECTED XX 06/30/20 14:50 06/30/20 14:49 DC Hydrocortisone (Hydrocortisone 1% Cream) 1 dose BIDP PRN TOP ITCHING 07/01/20 17:00 Hydroxyzine HCl (Atarax) 25 mg TID PO 06/30/20 16:00 07/03/20 09:33 DC 07/02/20 21:05 Hydroxyzine HCl (Atarax) 50 mg QHS PRN PO sleep 07/02/20 08:45 07/03/20 09:33 DC 07/02/20 21:06 Ibuprofen (Advil) 600 mg Q6HP PRN PO MODERATE PAIN (PS 5-7) 07/01/20 17:00 07/08/20 08:49 Lamotrigine (LaMICtal) 25 mg BID PO 07/01/20 09:00 07/02/20 08:58 DC 07/02/20 08:31 Lamotrigine (LaMICtal) 50 mg BID PO 07/02/20 21:00 07/06/20 08:29 DC 07/05/20 20:54 Lamotrigine (LaMICtal) 100 mg BID PO 07/06/20 09:00 07/08/20 08:44 Levothyroxine Sodium (Synthroid) 50 mcg DAILY@06 PO 06/30/20 06:00 07/08/20 06:00 Lisinopril (Prinivil) 40 mg DAILY PO 07/01/20 09:00 06/30/20 14:25 DC Lisinopril (Prinivil) 40 mg DAILY PO 07/01/20 09:00 07/04/20 09:29 DC 07/04/20 08:42 Lorazepam (Ativan) 1 mg Q6HP PRN PO ANXIETY 06/30/20 17:35 07/02/20 08:59 DC 07/02/20 08:40 Lorazepam (Ativan) 1 mg Q8HP PRN PO ANXIETY 07/03/20 09:30 07/06/20 09:29 DC 07/05/20 23:07 Lorazepam (Ativan) 1 mg Q8HP PRN PO ANXIETY 07/06/20 21:20 07/09/20 21:00 07/08/20 08:49 Magnesium Hydroxide (Milk Of Magnesia) 30 ml DAILYPRN PRN PO CONSTIPATION 06/30/20 14:30 Miscellaneous (Unresolved Clarification Entry) SEE LABEL COMMENTS DAILY XX 07/06/20 09:00 Miscellaneous (Unresolved Patient Own Med Order) SEE LABEL COMMENTS DAILY XX 06/30/20 09:00 Nicotine (Nicoderm Cq 21mg) 1 patch DAILY TD 06/30/20 09:00 07/06/20 15:18 DC Paroxetine HCl (PAXil) 20 mg DAILY PO 07/03/20 09:00 07/08/20 08:44 Patient Own Medication (Patient'S Own Med) 1 ML (150 MG) Q28D SC 07/02/20 09:00 06/30/20 16:50 DC Patient Own Medication (Patient'S Own Med) 1 ML (150 MG) Q28D SC 07/02/20 09:00 UNV Pravastatin Sodium (Pravachol) 20 mg QHS PO 06/30/20 21:00 07/07/20 21:26 Pregabalin (Lyrica) 100 mg TID PO 06/30/20 16:00 07/01/20 17:00 DC 07/01/20 15:46 Pregabalin (Lyrica) 150 mg TID PO 07/01/20 21:00 07/08/20 08:44 Tizanidine HCl (Zanaflex) 4 mg TID PO 06/30/20 16:00 07/08/20 08:44 Trazodone HCl (Desyrel) 50 mg QHSP PRN PO INSOMNIA 06/30/20 21:00 Cancel Trazodone HCl (Desyrel) 100 mg QHSP PRN PO insomnia 07/03/20 21:10 07/06/20 08:25 DC 07/05/20 23:07 Trazodone HCl (Desyrel) 150 mg QHS PO 07/06/20 21:00 07/07/20 23:08 Allergies Coded Allergies: cefuroxime (Verified Adverse Reaction, Intermediate, heart racing, 06/30/20) zolpidem (Verified Adverse Reaction, Unknown, 06/30/20) IWONA ROCHA M.D. July 08, 2020 10:11
[2020-07-08] MEDS: MOM 30ML SUSPENSION UDC PO PRN (13:49)
[2020-07-08 16:11] VITALS: BP 126/56
[2020-07-08] MEDS: ACETAMINOPHEN TAB 650MG DOSE (2X325MG) PO PRN (17:36)
[2020-07-08] MEDS: diphenhydrAMINE 50MG CAP PO SCH (21:16)
[2020-07-08] MEDS: PRAVASTATIN 20 MG TAB PO SCH (21:16)
[2020-07-08] MEDS: traZODone 50 MG TAB PO SCH (22:47)
[2020-07-08] MEDS ORDERED: traZODone 100 MG TAB PO ONE (22:50)
[2020-07-09] MEDS: LEVOTHYROXINE 50MCG TABLET (0.05MG) PO SCH (06:04)
[2020-07-09 06:22] VITALS: BP 112/58
[2020-07-09] MEDS: FEXOFENADINE 60 MG TAB PO SCH (09:09)
[2020-07-09] MEDS: tiZANidine 4 MG TAB PO SCH ×3 (09:10→20:08)
[2020-07-09] MEDS: buPROPion **SR TABLET** (ZYBAN) 150MG PO SCH ×2 (09:10→20:08)
[2020-07-09] MEDS: lamoTRIgine 100MG TAB PO SCH ×2 (09:11→20:08)
[2020-07-09] MEDS: PARoxetine 10MG TABLET PO SCH (09:11)
[2020-07-09] MEDS: PREGABALIN 75 MG CAP(LYRICA) PO SCH ×3 (09:12→20:08)
[2020-07-09] MEDS: LORazepam 1 MG TAB PO PRN ×2 (09:13→20:05)
[2020-07-09] MEDS: ACETAMINOPHEN TAB 650MG DOSE (2X325MG) PO PRN (09:13)
--- NOTE | 2020-07-09 10:36 | MHIPNPDOC ---
[facility] Progress Note Progress Note DATE OF SERVICE: 07/09/20 The patient reports no significant change in his mood and stated feeling anxious and depressed and fearful. He is a however, showing some decrease in the inten sity of his symptoms and appears less restless and not as dramatic. He admits to his severe fear of incarceration and is trying to contact his battery checker but has not been able to get a hold of her. He is tolerating his medications without any side effect, but is very anxious about discontinuing his lorazepam. I will decrease it to 0.5 mg from tomorrow and increase his trazodone to 200 mg at bedtime. HISTORY: . VITAL SIGNS: See below. NEW TEST RESULTS: . CURRENT MEDICATIONS: See below. MENTAL STATUS EXAMINATION: Patient is a 35-year old male, who is , cooperative. Speech: Is , pressured but rational, coherent. Language skills are good . Thought processes including: , Organized. Thought content: . No psychotic symptoms, but anxious and fearful thoughts. Abstract reasoning, and computation: Good. Description of associations: , Organized. Description of abnormal or psychotic thoughts: None. Judgment: , Fair. Insight: fair. . Orientation: Good. Recent and remote memory: Good. Attention span and concentration: , Fair. Language: . Fund of knowledge: Average. Mood: Moderately anxious and depressed. Affect: , Anxious, but appropriate]. DIAGNOSES: 1. . Bipolar disorder type II, depressed 2. . 3. . ASSESSMENT:[Slight improvement and no active suicidal thoughts] MANAGEMENT PLAN: [Continue with his medication. Supportive therapy]. TIME SPENT: [20] minutes. Vital Signs Vital Signs Date Time Temp Pulse Resp B/P (MAP) Pulse Ox O2 Delivery O2 Flow Rate FiO2 07/09/20 09:10 62 139/83 07/09/20 06:22 98.4 18 97 Room Air Current Medications Current Medications Medications (Trade) Dose Ordered Sig/Katelin Route PRN Reason Start Time Stop Time Status Last Admin Dose Admin Acetaminophen (Tylenol Tab) 650 mg Q6HP PRN PO HEADACHE or DISCOMFORT 06/30/20 14:30 07/09/20 09:13 Al Hydrox/Mg Hydrox/Simethicone (Mylanta) 30 ml Q4HP PRN PO HEARTBURN/INDIGESTION 06/30/20 14:30 Amlodipine Besylate (Norvasc) 10 mg DAILY PO 07/05/20 09:00 07/09/20 09:10 Bupropion HCl (Wellbutrin Sr) 100 mg BID PO 07/02/20 21:00 07/06/20 08:25 DC 07/05/20 20:54 Bupropion HCl (Wellbutrin Sr) 100 mg DAILY PO 07/01/20 09:00 07/02/20 08:58 DC 07/02/20 08:30 Bupropion HCl (Wellbutrin Sr) 150 mg BID PO 07/06/20 09:00 07/06/20 08:44 DC Bupropion HCl (Zyban, Wellbutrin Sr) 150 mg BID PO 07/06/20 09:00 07/09/20 09:10 Diphenhydramine HCl (Benadryl) 50 mg QHS PO 06/30/20 21:00 07/08/20 21:16 Epinephrine HCl (Adrenalin) 0.3 mg ASDIRECTED PRN IM ANAPHYLAXIS 07/04/20 09:25 Fexofenadine HCl (Trinity) 180 mg QAM PO 06/30/20 09:00 07/09/20 09:09 Home Med (Med Rec Complete!) ASDIRECTED XX 06/30/20 13:20 06/30/20 13:31 DC Home Med (Med Rec Complete!) ASDIRECTED XX 06/30/20 14:50 06/30/20 14:49 DC Hydrocortisone (Hydrocortisone 1% Cream) 1 dose BIDP PRN TOP ITCHING 07/01/20 17:00 Hydroxyzine HCl (Atarax) 25 mg TID PO 06/30/20 16:00 07/03/20 09:33 DC 07/02/20 21:05 Hydroxyzine HCl (Atarax) 50 mg QHS PRN PO sleep 07/02/20 08:45 07/03/20 09:33 DC 07/02/20 21:06 Ibuprofen (Advil) 600 mg Q6HP PRN PO MODERATE PAIN (PS 5-7) 07/01/20 17:00 07/08/20 21:17 Lamotrigine (LaMICtal) 25 mg BID PO 07/01/20 09:00 07/02/20 08:58 DC 07/02/20 08:31 Lamotrigine (LaMICtal) 50 mg BID PO 07/02/20 21:00 07/06/20 08:29 DC 07/05/20 20:54 Lamotrigine (LaMICtal) 100 mg BID PO 07/06/20 09:00 07/09/20 09:11 Levothyroxine Sodium (Synthroid) 50 mcg DAILY@06 PO 06/30/20 06:00 07/09/20 06:04 Lisinopril (Prinivil) 40 mg DAILY PO 07/01/20 09:00 06/30/20 14:25 DC Lisinopril (Prinivil) 40 mg DAILY PO 07/01/20 09:00 07/04/20 09:29 DC 07/04/20 08:42 Lorazepam (Ativan) 1 mg Q6HP PRN PO ANXIETY 06/30/20 17:35 07/02/20 08:59 DC 07/02/20 08:40 Lorazepam (Ativan) 1 mg Q8HP PRN PO ANXIETY 07/03/20 09:30 07/06/20 09:29 DC 07/05/20 23:07 Lorazepam (Ativan) 1 mg Q8HP PRN PO ANXIETY 07/06/20 21:20 07/09/20 21:00 07/09/20 09:13 Magnesium Hydroxide (Milk Of Magnesia) 30 ml DAILYPRN PRN PO CONSTIPATION 06/30/20 14:30 07/08/20 13:49 Miscellaneous (Unresolved Clarification Entry) SEE LABEL COMMENTS DAILY XX 07/06/20 09:00 07/08/20 10:10 DC Miscellaneous (Unresolved Patient Own Med Order) SEE LABEL COMMENTS DAILY XX 06/30/20 09:00 Nicotine (Nicoderm Cq 21mg) 1 patch DAILY TD 06/30/20 09:00 07/06/20 15:18 DC Paroxetine HCl (PAXil) 20 mg DAILY PO 07/03/20 09:00 07/08/20 10:06 DC 07/08/20 08:44 Paroxetine HCl (PAXil) 30 mg DAILY PO 07/09/20 09:00 07/09/20 09:11 Patient Own Medication (Patient'S Own Med) 1 ML (150 MG) Q28D SC 07/02/20 09:00 06/30/20 16:50 DC Patient Own Medication (Patient'S Own Med) 1 ML (150 MG) Q28D SC 07/02/20 09:00 UNV Pravastatin Sodium (Pravachol) 20 mg QHS PO 06/30/20 21:00 07/08/20 21:16 Pregabalin (Lyrica) 100 mg TID PO 06/30/20 16:00 07/01/20 17:00 DC 07/01/20 15:46 Pregabalin (Lyrica) 150 mg TID PO 07/01/20 21:00 07/09/20 09:12 Tizanidine HCl (Zanaflex) 4 mg TID PO 06/30/20 16:00 07/09/20 09:10 Trazodone HCl (Desyrel) 50 mg QHSP PRN PO INSOMNIA 06/30/20 21:00 Cancel Trazodone HCl (Desyrel) 100 mg QHSP PRN PO insomnia 07/03/20 21:10 07/06/20 08:25 DC 07/05/20 23:07 Trazodone HCl (Desyrel) 150 mg QHS PO 07/06/20 21:00 07/09/20 09:31 DC 07/07/20 23:08 Trazodone HCl (Desyrel) 200 mg QHS PO 07/09/20 21:00 Allergies Coded Allergies: cefuroxime (Verified Adverse Reaction, Intermediate, heart racing, 06/30/20) zolpidem (Verified Adverse Reaction, Unknown, 06/30/20) IWONA ROCHA M.D. July 09, 2020 10:36
[2020-07-09 16:11] VITALS: BP 128/68
[2020-07-09] MEDS: MOM 30ML SUSPENSION UDC PO PRN (19:30)
[2020-07-09] MEDS: IBUPROFEN 600MG TAB PO PRN (20:06)
[2020-07-09] MEDS: diphenhydrAMINE 50MG CAP PO SCH (20:08)
[2020-07-09] MEDS: PRAVASTATIN 20 MG TAB PO SCH (20:08)
[2020-07-09] MEDS: traZODone 100 MG TAB PO SCH (23:11)
[2020-07-10] MEDS: LEVOTHYROXINE 50MCG TABLET (0.05MG) PO SCH (06:06)
[2020-07-10 06:58] VITALS: BP 105/57
[2020-07-10] MEDS: tiZANidine 4 MG TAB PO SCH ×3 (08:51→20:43)
[2020-07-10] MEDS: PREGABALIN 75 MG CAP(LYRICA) PO SCH ×3 (08:51→20:43)
[2020-07-10] MEDS: PARoxetine 10MG TABLET PO SCH (08:51)
[2020-07-10] MEDS: buPROPion **SR TABLET** (ZYBAN) 150MG PO SCH ×2 (08:51→20:43)
[2020-07-10] MEDS: FEXOFENADINE 60 MG TAB PO SCH (08:51)
[2020-07-10] MEDS: lamoTRIgine 100MG TAB PO SCH ×2 (08:51→20:43)
--- NOTE | 2020-07-10 10:58 | MHIPNPDOC ---
[facility] Progress Note Progress Note DATE OF SERVICE: 07/10/20 Patient admits that he is not feeling as hopeless, helpless, and not feeling as suicidal and overall a little better. He doesn't appear as intensely anxious and more spontaneous and reports improved sleep. He is stated very fearful over his court case and is afraid of the being incarcerated and has been trying to contact his public message service supervisor with no success. He is getting good deal of support from his and feeling reassured. He understands that he cannot rely on medicine for his anxiety and was explained that his lorazepam will be decreased to half milligram as needed for 3 more days and will be discontinued. HISTORY: . VITAL SIGNS: See below. NEW TEST RESULTS: . CURRENT MEDICATIONS: See below. MENTAL STATUS EXAMINATION: Patient is a 35-year old male, who is in no acute distress . Speech: Is organized, coherent. Language skills are good. Thought processes including: Relevant, coherent . Thought content: Denies any suicidal thoughts . Abstract reasoning, and computation: Good . Description of associations: Organized . Description of abnormal or psychotic thoughts: None. Judgment: Fair. Insight: fair. . Orientation: Well oriented. Recent and remote memory: . Good Attention span and concentration: Good. Language: . Fund of knowledge: . Average Mood: Moderately anxious and depressed . Affect: ., Appropriate DIAGNOSES: 1. , Bipolar disorder type II, depressed. 2. . 3. . ASSESSMENT: Slight improvement MANAGEMENT PLAN: Continue with the current medications and supportive therapy. TIME SPENT:20 minutes. Vital Signs Vital Signs Date Time Temp Pulse Resp B/P (MAP) Pulse Ox O2 Delivery O2 Flow Rate FiO2 07/10/20 08:51 69 138/73 07/10/20 06:58 98.2 16 100 Room Air Current Medications Current Medications Medications (Trade) Dose Ordered Sig/Katelin Route PRN Reason Start Time Stop Time Status Last Admin Dose Admin Acetaminophen (Tylenol Tab) 650 mg Q6HP PRN PO HEADACHE or DISCOMFORT 06/30/20 14:30 07/09/20 09:13 Al Hydrox/Mg Hydrox/Simethicone (Mylanta) 30 ml Q4HP PRN PO HEARTBURN/INDIGESTION 06/30/20 14:30 Amlodipine Besylate (Norvasc) 10 mg DAILY PO 07/05/20 09:00 07/10/20 08:51 Bupropion HCl (Wellbutrin Sr) 100 mg BID PO 07/02/20 21:00 07/06/20 08:25 DC 07/05/20 20:54 Bupropion HCl (Wellbutrin Sr) 100 mg DAILY PO 07/01/20 09:00 07/02/20 08:58 DC 07/02/20 08:30 Bupropion HCl (Wellbutrin Sr) 150 mg BID PO 07/06/20 09:00 07/06/20 08:44 DC Bupropion HCl (Zyban, Wellbutrin Sr) 150 mg BID PO 07/06/20 09:00 07/10/20 08:51 Diphenhydramine HCl (Benadryl) 50 mg QHS PO 06/30/20 21:00 07/09/20 20:08 Epinephrine HCl (Adrenalin) 0.3 mg ASDIRECTED PRN IM ANAPHYLAXIS 07/04/20 09:25 Fexofenadine HCl (Trinity) 180 mg QAM PO 06/30/20 09:00 07/10/20 08:51 Home Med (Med Rec Complete!) ASDIRECTED XX 06/30/20 13:20 06/30/20 13:31 DC Home Med (Med Rec Complete!) ASDIRECTED XX 06/30/20 14:50 06/30/20 14:49 DC Hydrocortisone (Hydrocortisone 1% Cream) 1 dose BIDP PRN TOP ITCHING 07/01/20 17:00 Hydroxyzine HCl (Atarax) 25 mg TID PO 06/30/20 16:00 07/03/20 09:33 DC 07/02/20 21:05 Hydroxyzine HCl (Atarax) 50 mg QHS PRN PO sleep 07/02/20 08:45 07/03/20 09:33 DC 07/02/20 21:06 Ibuprofen (Advil) 600 mg Q6HP PRN PO MODERATE PAIN (PS 5-7) 07/01/20 17:00 07/09/20 20:06 Lamotrigine (LaMICtal) 25 mg BID PO 07/01/20 09:00 07/02/20 08:58 DC 07/02/20 08:31 Lamotrigine (LaMICtal) 50 mg BID PO 07/02/20 21:00 07/06/20 08:29 DC 07/05/20 20:54 Lamotrigine (LaMICtal) 100 mg BID PO 07/06/20 09:00 07/10/20 08:51 Levothyroxine Sodium (Synthroid) 50 mcg DAILY@06 PO 06/30/20 06:00 07/10/20 06:06 Lisinopril (Prinivil) 40 mg DAILY PO 07/01/20 09:00 06/30/20 14:25 DC Lisinopril (Prinivil) 40 mg DAILY PO 07/01/20 09:00 07/04/20 09:29 DC 07/04/20 08:42 Lorazepam (Ativan) 1 mg Q6HP PRN PO ANXIETY 06/30/20 17:35 07/02/20 08:59 DC 07/02/20 08:40 Lorazepam (Ativan) 1 mg Q8HP PRN PO ANXIETY 07/03/20 09:30 07/06/20 09:29 DC 07/05/20 23:07 Lorazepam (Ativan) 1 mg Q8HP PRN PO ANXIETY 07/06/20 21:20 07/09/20 21:00 DC 07/09/20 20:05 Magnesium Hydroxide (Milk Of Magnesia) 30 ml DAILYPRN PRN PO CONSTIPATION 06/30/20 14:30 07/09/20 19:30 Miscellaneous (Unresolved Clarification Entry) SEE LABEL COMMENTS DAILY XX 07/06/20 09:00 07/08/20 10:10 DC Miscellaneous (Unresolved Patient Own Med Order) SEE LABEL COMMENTS DAILY XX 06/30/20 09:00 Nicotine (Nicoderm Cq 21mg) 1 patch DAILY TD 06/30/20 09:00 07/06/20 15:18 DC Paroxetine HCl (PAXil) 20 mg DAILY PO 07/03/20 09:00 07/08/20 10:06 DC 07/08/20 08:44 Paroxetine HCl (PAXil) 30 mg DAILY PO 07/09/20 09:00 07/10/20 08:51 Patient Own Medication (Patient'S Own Med) 1 ML (150 MG) Q28D SC 07/02/20 09:00 06/30/20 16:50 DC Patient Own Medication (Patient'S Own Med) 1 ML (150 MG) Q28D SC 07/02/20 09:00 UNV Pravastatin Sodium (Pravachol) 20 mg QHS PO 06/30/20 21:00 07/09/20 20:08 Pregabalin (Lyrica) 100 mg TID PO 06/30/20 16:00 07/01/20 17:00 DC 07/01/20 15:46 Pregabalin (Lyrica) 150 mg TID PO 07/01/20 21:00 07/10/20 08:51 Tizanidine HCl (Zanaflex) 4 mg TID PO 06/30/20 16:00 07/10/20 08:51 Trazodone HCl (Desyrel) 50 mg QHSP PRN PO INSOMNIA 06/30/20 21:00 Cancel Trazodone HCl (Desyrel) 100 mg QHSP PRN PO insomnia 07/03/20 21:10 07/06/20 08:25 DC 07/05/20 23:07 Trazodone HCl (Desyrel) 150 mg QHS PO 07/06/20 21:00 07/09/20 09:31 DC 07/07/20 23:08 Trazodone HCl (Desyrel) 200 mg QHS PO 07/09/20 21:00 07/09/20 23:11 Allergies Coded Allergies: cefuroxime (Verified Adverse Reaction, Intermediate, heart racing, 06/30/20) zolpidem (Verified Adverse Reaction, Unknown, 06/30/20) IWONA ROCHA M.D. July 10, 2020 10:58
[2020-07-10] MEDS: LORazepam 0.5 MG TAB PO PRN ×3 (12:06→23:39)
[2020-07-10 16:30] VITALS: BP 140/85
[2020-07-10] MEDS: MOM 30ML SUSPENSION UDC PO PRN (17:57)
[2020-07-10] MEDS: diphenhydrAMINE 50MG CAP PO SCH (20:43)
[2020-07-10] MEDS: PRAVASTATIN 20 MG TAB PO SCH (20:44)
[2020-07-10] MEDS: IBUPROFEN 600MG TAB PO PRN (20:44)
[2020-07-10] MEDS: traZODone 100 MG TAB PO SCH (23:39)
[2020-07-11] MEDS: LEVOTHYROXINE 50MCG TABLET (0.05MG) PO SCH (06:03)
[2020-07-11 06:23] VITALS: BP 111/65
[2020-07-11] MEDS: MIRALAX *UNIT DOSE* 17GM PACKET PO PRN (07:33)
[2020-07-11] MEDS: buPROPion **SR TABLET** (ZYBAN) 150MG PO SCH ×2 (08:26→20:10)
[2020-07-11] MEDS: PARoxetine 10MG TABLET PO SCH (08:26)
[2020-07-11] MEDS: PREGABALIN 75 MG CAP(LYRICA) PO SCH ×3 (08:26→20:10)
[2020-07-11] MEDS: FEXOFENADINE 60 MG TAB PO SCH (08:26)
[2020-07-11] MEDS: lamoTRIgine 100MG TAB PO SCH ×2 (08:27→20:11)
[2020-07-11] MEDS: tiZANidine 4 MG TAB PO SCH ×3 (08:27→20:10)
[2020-07-11] MEDS: ACETAMINOPHEN TAB 650MG DOSE (2X325MG) PO PRN (08:27)
[2020-07-11] MEDS: LORazepam 0.5 MG TAB PO PRN ×2 (13:31→23:28)
[2020-07-11] MEDS: SENOKOT S TAB PO PRN (13:31)
--- NOTE | 2020-07-11 15:01 | REP ---
INDICATION: constipation COMPARISON: None. TECHNIQUE: Supine view of the abdomen and pelvis. FINDINGS: Bowel gas pattern is nonspecific and without obstruction or perforation. No significant fecal stasis. No organomegaly. No abnormal calcifications. Skeletal structures intact. IMPRESSION: Normal abdominal radiograph. <Electronically signed by Moe Bennett > 07/11/20 [id number]
[2020-07-11 16:15] VITALS: BP 136/81
[2020-07-11] MEDS: PRAVASTATIN 20 MG TAB PO SCH (20:10)
[2020-07-11] MEDS: IBUPROFEN 600MG TAB PO PRN (20:11)
[2020-07-11] MEDS: diphenhydrAMINE 50MG CAP PO SCH (20:11)
[2020-07-11] MEDS: traZODone 100 MG TAB PO SCH (23:28)
[2020-07-12] MEDS: LEVOTHYROXINE 50MCG TABLET (0.05MG) PO SCH (06:08)
[2020-07-12 06:28] VITALS: BP 115/53
[2020-07-12] MEDS: MIRALAX *UNIT DOSE* 17GM PACKET PO PRN (08:20)
[2020-07-12] MEDS: FEXOFENADINE 60 MG TAB PO SCH (08:20)
[2020-07-12] MEDS: SENOKOT S TAB PO PRN (08:21)
[2020-07-12] MEDS: LORazepam 0.5 MG TAB PO PRN (08:21)
[2020-07-12] MEDS: ACETAMINOPHEN TAB 650MG DOSE (2X325MG) PO PRN (08:21)
[2020-07-12] MEDS: PREGABALIN 75 MG CAP(LYRICA) PO SCH ×3 (08:21→20:32)
[2020-07-12] MEDS: buPROPion **SR TABLET** (ZYBAN) 150MG PO SCH ×2 (08:22→20:32)
[2020-07-12] MEDS: lamoTRIgine 100MG TAB PO SCH ×2 (08:22→20:32)
[2020-07-12] MEDS: PARoxetine 10MG TABLET PO SCH (08:22)
[2020-07-12] MEDS: tiZANidine 4 MG TAB PO SCH ×3 (08:22→20:32)
[2020-07-12 16:26] VITALS: BP 131/72
[2020-07-12] MEDS: PRAVASTATIN 20 MG TAB PO SCH (20:32)
[2020-07-12] MEDS: diphenhydrAMINE 50MG CAP PO SCH (20:32)
[2020-07-12] MEDS: IBUPROFEN 600MG TAB PO PRN (20:33)
[2020-07-12] MEDS: traZODone 100 MG TAB PO SCH (23:02)
[2020-07-13] MEDS: LEVOTHYROXINE 50MCG TABLET (0.05MG) PO SCH (06:14)
[2020-07-13 06:44] VITALS: BP 108/60
--- NOTE | 2020-07-13 09:06 | MHIPNPDOC ---
[facility] Progress Note Progress Note DATE OF SERVICE: 07/13/20 The patient reports that over the weekend his of 10 years who has been very supportive informed him that their marriage is over.. He is understandably upset and doesn't understand why and stated it is very important to talk to her and figure out what went wrong. He is more upset and anxious , but he is in good control and denies any increased suicidal thoughts and is asking for discharge tomorrow so he can go home and deal with his marital situation. He appears moderately anxious but not as dramatic and is dealing with this crisis fairly rationally., We will give him support and education, and continue with the current medicine and possibly discharging tomorrow. HISTORY: . VITAL SIGNS: See below. NEW TEST RESULTS: . CURRENT MEDICATIONS: See below. MENTAL STATUS EXAMINATION: Patient is a 35-year old male, who is , cooperative and in good control. Speech: Is rational, coherent. Language skills are good. Thought processes including: Relevant. Thought content: . No psychotic symptoms and denies any suicidal thoughts. Abstract reasoning, and computation: , Fair. Description of associations: , Fair. Description of abnormal or psychotic thoughts: none . Judgment: , Fair. Insight: fair. . Orientation: , Well oriented. Recent and remote memory: Good. Attention span and concentration: , Fair. Language: . Fund of knowledge: Average. Mood: Moderately anxious and depressed. Affect: , Appropriate. DIAGNOSES: 1. . Bipolar type II depressed 2. . 3. . ASSESSMENT:Patient reports another life crisis, especially with his marriage, but appears to be handling it rationally and denies any lethality MANAGEMENT PLAN: Continuing the current treatment. Possible discharge tomorrow. TIME SPENT: 20 minutes. Vital Signs Vital Signs Date Time Temp Pulse Resp B/P (MAP) Pulse Ox O2 Delivery O2 Flow Rate FiO2 07/13/20 06:44 98.2 65 20 108/60 (76) 97 Room Air Current Medications Current Medications Medications (Trade) Dose Ordered Sig/Katelin Route PRN Reason Start Time Stop Time Status Last Admin Dose Admin Acetaminophen (Tylenol Tab) 650 mg Q6HP PRN PO HEADACHE or DISCOMFORT 06/30/20 14:30 07/12/20 08:21 Al Hydrox/Mg Hydrox/Simethicone (Mylanta) 30 ml Q4HP PRN PO HEARTBURN/INDIGESTION 06/30/20 14:30 Amlodipine Besylate (Norvasc) 10 mg DAILY PO 07/05/20 09:00 07/12/20 08:21 Bupropion HCl (Wellbutrin Sr) 100 mg BID PO 07/02/20 21:00 07/06/20 08:25 DC 07/05/20 20:54 Bupropion HCl (Wellbutrin Sr) 100 mg DAILY PO 07/01/20 09:00 07/02/20 08:58 DC 07/02/20 08:30 Bupropion HCl (Wellbutrin Sr) 150 mg BID PO 07/06/20 09:00 07/06/20 08:44 DC Bupropion HCl (Zyban, Wellbutrin Sr) 150 mg BID PO 07/06/20 09:00 07/12/20 20:32 Diphenhydramine HCl (Benadryl) 50 mg QHS PO 06/30/20 21:00 07/12/20 20:32 Epinephrine HCl (Adrenalin) 0.3 mg ASDIRECTED PRN IM ANAPHYLAXIS 07/04/20 09:25 Fexofenadine HCl (Trinity) 180 mg QAM PO 06/30/20 09:00 07/12/20 08:20 Home Med (Med Rec Complete!) ASDIRECTED XX 06/30/20 13:20 06/30/20 13:31 DC Home Med (Med Rec Complete!) ASDIRECTED XX 06/30/20 14:50 06/30/20 14:49 DC Hydrocortisone (Hydrocortisone 1% Cream) 1 dose BIDP PRN TOP ITCHING 07/01/20 17:00 Hydroxyzine HCl (Atarax) 25 mg TID PO 06/30/20 16:00 07/03/20 09:33 DC 07/02/20 21:05 Hydroxyzine HCl (Atarax) 50 mg QHS PRN PO sleep 07/02/20 08:45 07/03/20 09:33 DC 07/02/20 21:06 Ibuprofen (Advil) 600 mg Q6HP PRN PO MODERATE PAIN (PS 5-7) 07/01/20 17:00 07/12/20 20:33 Lamotrigine (LaMICtal) 25 mg BID PO 07/01/20 09:00 07/02/20 08:58 DC 07/02/20 08:31 Lamotrigine (LaMICtal) 50 mg BID PO 07/02/20 21:00 07/06/20 08:29 DC 07/05/20 20:54 Lamotrigine (LaMICtal) 100 mg BID PO 07/06/20 09:00 07/12/20 20:32 Levothyroxine Sodium (Synthroid) 50 mcg DAILY@06 PO 06/30/20 06:00 07/13/20 06:14 Lisinopril (Prinivil) 40 mg DAILY PO 07/01/20 09:00 06/30/20 14:25 DC Lisinopril (Prinivil) 40 mg DAILY PO 07/01/20 09:00 07/04/20 09:29 DC 07/04/20 08:42 Lorazepam (Ativan) 0.5 mg TIDP PRN PO ANXIETY 07/10/20 10:50 07/12/20 09:45 DC 07/12/20 08:21 Lorazepam (Ativan) 1 mg Q6HP PRN PO ANXIETY 06/30/20 17:35 07/02/20 08:59 DC 07/02/20 08:40 Lorazepam (Ativan) 1 mg Q8HP PRN PO ANXIETY 07/03/20 09:30 07/06/20 09:29 DC 07/05/20 23:07 Lorazepam (Ativan) 1 mg Q8HP PRN PO ANXIETY 07/06/20 21:20 07/09/20 21:00 DC 07/09/20 20:05 Magnesium Hydroxide (Milk Of Magnesia) 30 ml DAILYPRN PRN PO CONSTIPATION 06/30/20 14:30 07/10/20 17:57 Miscellaneous (Unresolved Clarification Entry) SEE LABEL COMMENTS DAILY XX 07/06/20 09:00 07/08/20 10:10 DC Miscellaneous (Unresolved Patient Own Med Order) SEE LABEL COMMENTS DAILY XX 06/30/20 09:00 Nicotine (Nicoderm Cq 21mg) 1 patch DAILY TD 06/30/20 09:00 07/06/20 15:18 DC Paroxetine HCl (PAXil) 20 mg DAILY PO 07/03/20 09:00 07/08/20 10:06 DC 07/08/20 08:44 Paroxetine HCl (PAXil) 30 mg DAILY PO 07/09/20 09:00 07/12/20 08:22 Patient Own Medication (Patient'S Own Med) 1 ML (150 MG) Q28D SC 07/02/20 09:00 06/30/20 16:50 DC Patient Own Medication (Patient'S Own Med) 1 ML (150 MG) Q28D SC 07/02/20 09:00 UNV Polyethylene Glycol (Miralax) 1 pkt DAILYPRN PRN PO CONSTIPATION 07/10/20 20:35 07/12/20 08:20 Pravastatin Sodium (Pravachol) 20 mg QHS PO 06/30/20 21:00 07/12/20 20:32 Pregabalin (Lyrica) 100 mg TID PO 06/30/20 16:00 07/01/20 17:00 DC 07/01/20 15:46 Pregabalin (Lyrica) 150 mg TID PO 07/01/20 21:00 07/12/20 20:32 Senna/Docusate Sodium (Senokot S) 2 tab BIDP PRN PO CONSTIPATION 07/10/20 20:35 07/12/20 08:21 Tizanidine HCl (Zanaflex) 4 mg TID PO 06/30/20 16:00 07/12/20 20:32 Trazodone HCl (Desyrel) 50 mg QHSP PRN PO INSOMNIA 06/30/20 21:00 Cancel Trazodone HCl (Desyrel) 100 mg QHSP PRN PO insomnia 07/03/20 21:10 07/06/20 08:25 DC 07/05/20 23:07 Trazodone HCl (Desyrel) 150 mg QHS PO 07/06/20 21:00 07/09/20 09:31 DC 07/07/20 23:08 Trazodone HCl (Desyrel) 200 mg QHS PO 07/09/20 21:00 07/12/20 23:02 Allergies Coded Allergies: cefuroxime (Verified Adverse Reaction, Intermediate, heart racing, 06/30/20) zolpidem (Verified Adverse Reaction, Unknown, 06/30/20) IWONA ROCHA M.D. July 13, 2020 09:06
[2020-07-13] MEDS: tiZANidine 4 MG TAB PO SCH ×3 (09:10→20:10)
[2020-07-13] MEDS: buPROPion **SR TABLET** (ZYBAN) 150MG PO SCH ×2 (09:10→20:10)
[2020-07-13] MEDS: lamoTRIgine 100MG TAB PO SCH ×2 (09:10→20:10)
[2020-07-13] MEDS: PREGABALIN 75 MG CAP(LYRICA) PO SCH ×3 (09:10→20:10)
[2020-07-13] MEDS: PARoxetine 10MG TABLET PO SCH (09:11)
[2020-07-13] MEDS: FEXOFENADINE 60 MG TAB PO SCH (09:11)
[2020-07-13] MEDS: SENOKOT S TAB PO PRN ×2 (09:13→20:10)
[2020-07-13 19:24] VITALS: BP 144/78
[2020-07-13] MEDS: diphenhydrAMINE 50MG CAP PO SCH (20:10)
[2020-07-13] MEDS: PRAVASTATIN 20 MG TAB PO SCH (20:10)
[2020-07-13] MEDS: traZODone 100 MG TAB PO SCH (23:05)
[2020-07-14] MEDS: LEVOTHYROXINE 50MCG TABLET (0.05MG) PO SCH (05:47)
[2020-07-14 06:24] VITALS: BP 127/66
[2020-07-14] MEDS ORDERED: LAMO100T80 PO (08:00)
[2020-07-14] MEDS ORDERED: BUPR15TASR PO (08:00)
[2020-07-14] MEDS ORDERED: DIPH50CA PO (08:00)
[2020-07-14] MEDS ORDERED: AMLO1TAB25 PO (08:00)
[2020-07-14] MEDS ORDERED: PARO5TAB PO (08:00)
[2020-07-14] MEDS ORDERED: TRAZ-257 PO (08:00)
[2020-07-14 08:35] VITALS: BP 127/66
[2020-07-14] MEDS: buPROPion **SR TABLET** (ZYBAN) 150MG PO SCH (08:35)
[2020-07-14] MEDS: lamoTRIgine 100MG TAB PO SCH (08:35)
[2020-07-14] MEDS: FEXOFENADINE 60 MG TAB PO SCH (08:35)
[2020-07-14] MEDS: PARoxetine 10MG TABLET PO SCH (08:36)
[2020-07-14] MEDS: PREGABALIN 75 MG CAP(LYRICA) PO SCH (08:36)
[2020-07-14] MEDS: tiZANidine 4 MG TAB PO SCH (08:37)
[2020-07-14] MEDS: SENOKOT S TAB PO PRN (08:41)
--- NOTE | 2020-07-14 09:26 | MHDSPDOC ---
[facility] Discharge Summary Discharge Summary DATE OF ADMISSION: June 30, 2020 at 14:12 DATE OF DISCHARGE: 07/14/2020 DISCHARGE DIAGNOSES: 1. . Bipolar disorder type II, depressed 2. . Alcohol use disorder in remission REASON FOR ADMISSION: 35-year-old male with past history of depression, mood swings and benzodiazepine and alcohol dependence], in remission since March of this year. He was admitted after reporting increasing depression with severe anxiety, poor sleep, decreased energy and concentration and experiencing increasing suicidal thoughts. He has been under stress from his second DWI arrest in March of this following his earlier DWI arrest for which he is under probation. CONSULTANTS INVOLVED: , None TREATMENT AND PROGRESS ON THE UNIT : The patient reports a long history of the mood swings, but no clear-cut psychotic manic episode but describing hypomanic episode in the past. He also has a strong family history of bipolar disorder. Due to his complaint of the serious anxiety and marked depressive symptoms. He was started on Wellbutrin 75 mg twice a day increased to 150 mg twice a day and Paxil 20 mg was added for additional antidepressant effect and anxiolytic effect. In view over is a significant mood swings. Lamictal 50 mg was started and was tolerated well and increased to 100 mg twice a day. During the early course of his hospitalization, patient had repeated panic symptoms and remained extremely anxious, with the poor sleep and was given Ativan 1 mg as needed, but was tapered down to half milligram as needed and will be discontinued prior to his discharge. His sleep was erratic and trazodone was started and increased to 200 mg at bedtime with a significant benefit. Patient was seen for daily supportive therapy, and he was able to discuss his concerns and fear of being incarcerated due to his probation by relation and support and education was given. He was initially very anxious, feeling hopeless, helpless, with some dramatic quality in his presentation, but with medication and hospital milieu therapy, he is showing gradual but significant improvement. He is becoming more animated, spontaneous and denies any suicidal thoughts. His sleep has improved. He is socializing and maintaining good control and didn't show any suicidal or dangerous behavior. He remained very concerned about his probation status and also concerned about his marital status after his told him that she was thinking about leaving. He is a however, showing fairly good insight and understands that he needs to go home and deal with his marriage and that his legal issues and is willing to accept outpatient referral and continue his current medication. . HOSPITAL COURSE: The patient has fully cooperated with the treatment plan is showing moderate relief in his severe anxiety and depressive symptoms and maintaining good control without any dangerous behavior. He appears to have gained maximum benefit from the hospitalization and appears to be stable at his baseline and will be discharged with outpatient follow-up arrangement. DISCHARGE ASSESSMENT: Improved, stable and not suicidal MENTAL STATUS EXAMINATION ON DISCHARGE: Patient is a 35-year old male, who is , mildly anxious but cooperative and appropriate. Speech is rational, coherent. Language skills are good. Thought processes including: Organized, relevant. Thought content: . No psychotic symptoms and denies any suicidal thoughts. Abstract reasoning, and computation: Good. Description of associations: Organized. Description of abnormal or psychotic thoughts: None. Judgment: Fair. Insight: fair. Orientation to , well oriented. Recent and remote memory: Good. Attention span and concentration: Good. Language: . Fund of knowledge: Every. Mood: , Mildly anxious. Affect: , Appropriate with good range. MEDICATIONS ON DISCHARGE: - for . all of his psychotropic medication including Lamictal, 100 mg twice a day. Wellbutrin SR 150 mg twice a day, Paxil 30 mg daily and trazodone 200 mg at bedtime for 7 days with 3 refills given - for . - for . PLAN/FOLLOWUP ARRANGEMENTS: As arranged by the process planner. The amount of time spent in the coordination of care for this patient was approximately 45 minutes. ETOH/Disorder Med Rx ETOH/DRUG DISORDER RX: N/A Vital Signs/I&Os Vital Signs Date Time Temp Pulse Resp B/P (MAP) Pulse Ox O2 Delivery O2 Flow Rate FiO2 07/14/20 08:35 93 127/66 07/14/20 06:24 99.2 18 97 Room Air Medications Scheduled Amlodipine Besylate (Amlodipine Besylate) 10 Mg Tablet, 10 MG PO DAILY for HTN for 30 Days, #30 Bupropion HCl (Bupropion HCl Sr) 150 Mg Tab.er.12h, 150 MG PO BID for depression for 7 Days, #14 Diphenhydramine HCl (Diphenhydramine HCl) 50 Mg Capsule, 50 MG PO QHS for sleep for 7 Days, #7 Fexofenadine HCl (Trinity Allergy) 180 Mg Tablet, 180 MG PO DAILY, (Reported) Lamotrigine (Lamotrigine) 100 Mg Tablet, 100 MG PO BID for mood for 7 Days, #14 Levothyroxine Sodium (Levothyroxine Sodium) 50 Mcg Tablet, 50 MCG PO DAILY, (Reported) Paroxetine (Paroxetine HCl) 10 Mg Tablet, 30 MG PO DAILY for depression for 7 Days, #7 Pravastatin Sodium (Pravastatin Sodium) 20 Mg Tablet, 20 MG PO DAILY, (Reported) Pregabalin (Pregabalin) 100 Mg Capsule, 100 MG PO TID, (Reported) Secukinumab (Cosentyx Pen (2 Pens)) 150 Mg/1 Ml Pen.injctr, 150 MG SC MTHLY, (Reported) DUE FOR NEXT INJECTION 07/02/2020 Tizanidine HCl (Tizanidine HCl) 4 Mg Tablet, 4 MG PO TID, (Reported) Trazodone HCl (Trazodone HCl) 100 Mg Tablet, 200 MG PO QHS for depression for 7 Days, #7 Scheduled PRN Eszopiclone (Eszopiclone) 3 Mg Tablet, 3 MG PO QHS PRN for INSOMNIA, (Reported) Allergies Coded Allergies: cefuroxime (Verified Adverse Reaction, Intermediate, heart racing, 06/30/20) zolpidem (Verified Adverse Reaction, Unknown, 06/30/20) IWONA ROCHA M.D. Jul 14, 2020 09:26
== END 2020-07-14 12:25 | disposition home or self-care (01) | DRG 885 ==
LOC: M ED 09:56 → M PSY 14:12 → M ED 16:50 → M PSY 07-01 17:29
PROVIDERS: ADMIT Psychiatry & Neurology Psychiatry; ATTEND Psychiatry & Neurology Psychiatry
DX: F31.81 Bipolar II disorder (principal); R45.851 Suicidal ideations; F10.11 Alcohol abuse, in remission; I10 Essential (primary) hypertension; E03.9 Hypothyroidism, unspecified; Z81.8 Family history of other mental and behavioral disorders; Z20.822 Contact with and (suspected) exposure to COVID-19; Z79.899 Other long term (current) drug therapy; Z88.8 Allergy status to other drugs, medicaments and biological substances; E78.5 Hyperlipidemia, unspecified; G89.4 Chronic pain syndrome; E66.9 Obesity, unspecified; Z68.37 Body mass index [BMI] 37.0-37.9, adult

== ENCOUNTER 2020-07-10 13:26 | Outpatient (RCR) | payer MEDICARE ==
[~2020-07-10 13:26] MED LIST changes: +ALLE180T33 PO; +COSE1INJ SC; +ESZO1TAB6 PO; +HYDR-3363 PO; +LEVO50TA5 PO; +LISI40TA4 PO; +LUNE2TAB23 PO; +PRAV20TA2 PO; +PREG100C PO; +TIZA4TAB4 PO
[2020-07-14] MEDS ORDERED: LAMO100T80 PO (08:00)
[2020-07-14] MEDS ORDERED: BUPR15TASR PO (08:00)
[2020-07-14] MEDS ORDERED: TRAZ-257 PO (08:00)
[2020-07-14] MEDS ORDERED: AMLO1TAB25 PO (08:00)
[2020-07-14] MEDS ORDERED: PARO5TAB PO (08:00)
[2020-07-14] MEDS ORDERED: DIPH50CA PO (08:00)
== END 2020-07-13 ==
LOC: M OUTALCOH 13:26
PROVIDERS: ATTEND Psychiatry & Neurology Psychiatry
DX: F10.20 Alcohol dependence, uncomplicated (principal); F17.200 Nicotine dependence, unspecified, uncomplicated

== ENCOUNTER → 2020-11-30 | Outpatient (CLI) | payer MEDICARE ==
[~2020-11-30] MED LIST changes: +AMLO1TAB25 PO; +BUPR15TASR PO; +DIPH50CA PO; +LAMO100T80 PO; +OMEP40CA4 PO; -OMEP40CA97 PO; +PARO5TAB PO
[2020-11-30 14:21] LABS: BASO % 0.6 % (0.0-1.0); EOS # 0.2 10^3/uL (0.0-0.5); EOS % 2.5 % (0.0-3.0); HEMATOCRIT 44.9 % (42.0-52.0); HEMOGLOBIN 14.4 g/dl (13.5-17.5); LYMPH # 1.8 10^3/uL (1.5-5.0); LYMPH % 26.5 % (24.0-44.0); MEAN CORPUSCULAR HEMOGLOBIN 29.3 pg (27.0-33.0); MEAN CORPUSCULAR HGB CONC 32.1 g/dl (32.0-36.5); MEAN CORPUSCULAR VOLUME 91.4 fl (80.0-96.0); MONO # 0.5 10^3/uL (0.0-0.8); MONO % 7.9 % (2.0-8.0); NEUTROPHILS # 4.1 10^3/uL (1.5-8.5); PLATELET COUNT, AUTOMATED 295 10^3/uL (150-450); RED BLOOD COUNT 4.91 10^6/uL (4.30-6.10); WHITE BLOOD COUNT 6.7 10^3/uL (4.0-10.0)
[2020-11-30 14:53] LABS: ALT/SGPT 38 U/L (12-78); BILIRUBIN,TOTAL 0.4 MG/DL (0.2-1.0); BLOOD UREA NITROGEN 14 MG/DL (7-18); CALCIUM LEVEL 8.8 MG/DL (8.5-10.1); CARBON DIOXIDE LEVEL 28 MEQ/L (21-32); CHLORIDE LEVEL 108 MEQ/L (98-107); CHOLESTEROL LEVEL 180 MG/DL (<200); CHOLESTEROL RISK RATIO 5.294 (<5); CREATININE FOR GFR 0.93 MG/DL (0.70-1.30); GLOMERULAR FILTRATION RATE > 60.0 (>60); GLUCOSE, FASTING 88 MG/DL (70-100); HDL CHOLESTEROL 34 MG/DL (>40); LDL CHOLESTEROL 121 MG/DL (<100); NON-HDL-C 146 MG/DL; POTASSIUM SERUM 4.4 MEQ/L (3.5-5.1); SODIUM LEVEL 141 MEQ/L (136-145); TOTAL PROTEIN 7.7 GM/DL (6.4-8.2); TRIGLYCERIDES LEVEL 124 MG/DL (<150)
[2020-11-30 14:56] LABS: HEPATITIS B SURFACE ANTIBODY NEGATIVE (POSITIVE)
[2020-11-30 15:06] LABS: HEPATITIS B SURFACE ANTIGEN NEGATIVE (NEGATIVE)
[2020-11-30 15:34] LABS: HEPATITIS C VIRUS ABY INDEX < 0.0 INDEX (<0.8)
[2020-11-30 15:35] LABS: HIV 1&2 SCREEN CENTAUR NEGATIVE (NEGATIVE)
== END ==
LOC: M PLALAB 10:39
PROVIDERS: ATTEND Nurse Practitioner Family
DX: E78.2 Mixed hyperlipidemia (principal); E03.9 Hypothyroidism, unspecified; Z11.3 Encounter for screening for infections with a predominantly sexual mode of transmission; Z68.38 Body mass index [BMI] 38.0-38.9, adult

== ENCOUNTER → 2020-12-04 | Outpatient (CLI) | payer MEDICARE | LOC: M OUTALCOH 13:50 | PROVIDERS: ATTEND Psychiatry & Neurology Psychiatry | DX: Z13.39 Encounter for screening examination for other mental health and behavioral disorders (principal); F10.20 Alcohol dependence, uncomplicated ==

== ENCOUNTER 2020-12-11 10:15 | Outpatient (RCR) | payer MEDICARE | END 2020-12-13 | LOC: M OUTALCOH 10:15 | PROVIDERS: ATTEND Psychiatry & Neurology Psychiatry | DX: F10.20 Alcohol dependence, uncomplicated (principal); Z72.0 Tobacco use ==

== ENCOUNTER → 2020-12-28 | Outpatient (CLI) | payer MEDICARE | LOC: M PLALAB 10:30 | PROVIDERS: ATTEND Physician Assistant | DX: Z51.81 Encounter for therapeutic drug level monitoring (principal); Z79.899 Other long term (current) drug therapy ==

== ENCOUNTER → 2020-12-28 | Outpatient (CLI) | payer MEDICARE ==
[2020-12-28 15:07] LABS: AMPHETAMINES URINE REFLEX NEGATIVE (NEGATIVE); BARBITURATES URINE REFLEX NEGATIVE (NEGATIVE); BENZODIAZEPINES URINE REFLEX NEGATIVE (NEGATIVE); CANNABINOIDS URINE REFLEX NEGATIVE (NEGATIVE); COCAINE METABOLITE URINE REFLE NEGATIVE (NEGATIVE); METHADONE URINE REFLEX NEGATIVE (NEGATIVE); OPIATES URINE REFLEX NEGATIVE (NEGATIVE); PHENCYCLIDINE URINE REFLEX NEGATIVE (NEGATIVE)
== END ==
LOC: M PLALAB 10:28
PROVIDERS: ATTEND Nurse Practitioner Family
DX: E78.2 Mixed hyperlipidemia (principal); E03.9 Hypothyroidism, unspecified; M50.122 Cervical disc disorder at C5-C6 level with radiculopathy; Z11.3 Encounter for screening for infections with a predominantly sexual mode of transmission; Z51.81 Encounter for therapeutic drug level monitoring; Z79.899 Other long term (current) drug therapy

== ENCOUNTER → 2021-01-12 | Outpatient (RCR) | payer MEDICARE, MEDICAID ==
[~2021-01-12] MED LIST changes: +TIZA10TA PO; -TIZA4TAB4 PO
== END ==
LOC: M OUTALCOH 12-22 15:04
PROVIDERS: ATTEND Psychiatry & Neurology Psychiatry
DX: F10.20 Alcohol dependence, uncomplicated (principal); Z72.0 Tobacco use

== ENCOUNTER 2021-02-09 09:00 | Outpatient (RCR) | payer MEDICARE ==
[~2021-02-09 09:00] MED LIST changes: -TIZA10TA PO; +TIZA4TAB4 PO
== END 2021-02-12 ==
LOC: M OUTALCOH 09:00
PROVIDERS: ATTEND Psychiatry & Neurology Psychiatry
DX: F10.20 Alcohol dependence, uncomplicated (principal); Z72.0 Tobacco use

== ENCOUNTER → 2021-03-15 | Outpatient (RCR) | payer MEDICARE, MEDICAID ==
[~2021-03-15] MED LIST changes: +TIZA10TA PO; -TIZA4TAB4 PO
== END ==
LOC: M OUTALCOH 02-15 15:48
PROVIDERS: ATTEND Psychiatry & Neurology Psychiatry
DX: F10.20 Alcohol dependence, uncomplicated (principal); Z72.0 Tobacco use

== ENCOUNTER → 2021-04-12 | Outpatient (RCR) | payer MEDICARE, MEDICAID | LOC: M OUTALCOH 15:00 | PROVIDERS: ATTEND Psychiatry & Neurology Psychiatry | DX: F10.20 Alcohol dependence, uncomplicated (principal); Z72.0 Tobacco use ==

== ENCOUNTER → 2021-04-12 | Outpatient (RCR) | payer MEDICARE, MEDICAID | LOC: M OUTALCOH 03-22 09:03 | PROVIDERS: ATTEND Psychiatry & Neurology Psychiatry | DX: F10.20 Alcohol dependence, uncomplicated (principal); Z72.0 Tobacco use ==

== ENCOUNTER 2021-05-11 07:55 | Outpatient (RCR) | payer MEDICARE, MEDICAID | END 2021-05-13 | LOC: M OUTALCOH 07:55 | PROVIDERS: ATTEND Psychiatry & Neurology Psychiatry | DX: F10.20 Alcohol dependence, uncomplicated (principal); Z72.0 Tobacco use ==

== ENCOUNTER 2021-06-10 08:57 | Outpatient (RCR) | payer MEDICARE, MEDICAID | END 2021-06-12 | LOC: M OUTALCOH 08:57 | PROVIDERS: ATTEND Psychiatry & Neurology Psychiatry | DX: F10.20 Alcohol dependence, uncomplicated (principal); Z72.0 Tobacco use ==

== ENCOUNTER 2021-07-05 09:00 | Outpatient (RCR) | payer MEDICARE, MEDICAID | END 2021-07-13 | LOC: M OUTALCOH 09:00 | PROVIDERS: ATTEND Psychiatry & Neurology Psychiatry | DX: F10.20 Alcohol dependence, uncomplicated (principal); Z72.0 Tobacco use ==

== ENCOUNTER 2021-07-14 09:30 | Outpatient (RCR) | payer MEDICARE, MEDICAID | END 2021-08-12 | LOC: M OUTALCOH 09:30 | PROVIDERS: ATTEND Psychiatry & Neurology Psychiatry | DX: F10.20 Alcohol dependence, uncomplicated (principal); Z72.0 Tobacco use ==

== ENCOUNTER 2021-07-19 09:01 | Outpatient (RCR) | payer MEDICARE, MEDICAID | END 2021-08-12 | LOC: M OUTALCOH 09:01 | PROVIDERS: ATTEND Psychiatry & Neurology Psychiatry | DX: F10.20 Alcohol dependence, uncomplicated (principal); Z72.0 Tobacco use ==

== ENCOUNTER → 2022-03-28 | Outpatient (CLI) | payer MEDICARE, MEDICAID ==
[~2022-03-28] MED LIST changes: -PAXI20TA29 PO; +PAXI20TA30 PO
== END ==
LOC: M PLALAB 09:49
PROVIDERS: ATTEND Physician Assistant
DX: Z79.899 Other long term (current) drug therapy (principal)

== ENCOUNTER → 2022-03-28 | Outpatient (CLI) | payer MEDICARE, MEDICAID ==
[2022-03-28 13:57] LABS: BASO % 0.5 % (0.0-1.0); EOS # 0.2 10^3/uL (0.0-0.5); EOS % 2.9 % (0.0-3.0); HEMOGLOBIN 15.1 g/dl (13.5-17.5); LYMPH # 1.9 10^3/uL (1.5-5.0); LYMPH % 24.9 % (24.0-44.0); MEAN CORPUSCULAR HEMOGLOBIN 29.8 pg (27.0-33.0); MEAN CORPUSCULAR HGB CONC 32.1 g/dl (32.0-36.5); MEAN CORPUSCULAR VOLUME 92.9 fl (80.0-96.0); MONO # 0.6 10^3/uL (0.0-0.8); MONO % 7.8 % (2.0-8.0); NEUTROPHILS # 4.9 10^3/uL (1.5-8.5); NEUTROPHILS % 63.1 % (36.0-66.0); PLATELET COUNT, AUTOMATED 320 10^3/uL (150-450); RED BLOOD COUNT 5.06 10^6/uL (4.30-6.10); WHITE BLOOD COUNT 7.8 10^3/uL (4.0-10.0)
[2022-03-28 14:24] LABS: ALBUMIN 4.1 G/DL (3.2-5.2); ALKALINE PHOSPHATASE 126 U/L (46-116); ALT/SGPT 30 U/L (7.0-40); AST/SGOT < 8 U/L (<34); BILIRUBIN,TOTAL 0.2 MG/DL (0.3-1.2); BLOOD UREA NITROGEN 18 MG/DL (9-23); CALCIUM LEVEL 9.7 MG/DL (8.5-10.1); CARBON DIOXIDE LEVEL 27 MMOL/L (20-31); CHLORIDE LEVEL 109 MMOL/L (98-107); CHOLESTEROL LEVEL 169 MG/DL (<200); CHOLESTEROL RISK RATIO 5.28 (<5); CREATININE FOR GFR 0.79 MG/DL (0.70-1.30); GLOMERULAR FILTRATION RATE > 60.0 (>60); GLUCOSE, FASTING 66 MG/DL (60-100); NON-HDL-C 137 MG/DL; POTASSIUM SERUM 4.3 MMOL/L (3.5-5.1); SODIUM LEVEL 141 MMOL/L (136-145); THYROID STIMULATING HORMONE 1.906 uIU/ML (0.55-4.78); TOTAL PROTEIN 7.6 G/DL (5.7-8.2); TRIGLYCERIDES LEVEL 165 MG/DL (<150)
== END ==
LOC: M PLALAB 09:51
PROVIDERS: ATTEND Family Medicine
DX: E78.2 Mixed hyperlipidemia (principal); E03.9 Hypothyroidism, unspecified; I10 Essential (primary) hypertension